=== PATIENT | male | born 1940 | race Caucasian/White ===

== ENCOUNTER → 2019-07-20 | Outpatient (CLI) | payer MEDICARE, OTHER ==
--- NOTE | 2019-07-20 15:38 | US ---
EXAMINATION TYPE: US kidneys/renal and bladder DATE OF EXAM: 07/20/2019 COMPARISON: US right 2008 CLINICAL HISTORY: Z87.442 Hx urinary calculi, R30.0 Dysuria. left flank pain radiating to left pelvis EXAM MEASUREMENTS: Right Kidney: 12.0 x 6.8 x 5.7 cm Left Kidney: 13.4 x 7.1 x 6.2 cm Post Void Residual Volume: 16.4 mL . Right Kidney: inferior pole shadowing calcifications with larger area = 1.5 x 1.8 x 0.4cm Left Kidney: multiple calcifications noted with initial views of mid lower sinus shadowing stone drop ping posteriorly on real time observation; this stone is largest = 2.0 x 1.01 x 0.5cm; very mild hydr onephrosis Bladder: wnl Bilateral Jets seen: yes Normal Post Void Residual: yes Suspect bilateral nonobstructing renal calculi. IMPRESSION: Bilateral nonobstructing renal calculi suspected. Consider plain film and/or CT confirmat ion. No hydronephrosis is noted bilaterally.
== END | disposition home or self-care (01) ==
LOC: RADUSWWP 14:38
PROVIDERS: ATTEND Family Medicine
DX: R30.0 Dysuria (principal); Z87.442 Personal history of urinary calculi
CPT/HCPCS: 76770

== ENCOUNTER → 2019-09-22 | Outpatient (CLI) | payer MEDICARE, OTHER ==
[2019-09-22 16:17] LABS: HCT 43.3 % (39.0-53.0); HGB 14.2 gm/dL (13.0-17.5); MCH 33.2 pg (25.0-35.0); MCHC 32.7 g/dL (31.0-37.0); MCV 101.3 fL (80.0-100.0); Mean Platelet Volume 7.9; Platelet Count 175 k/uL (150-450); RBC 4.28 m/uL (4.30-5.90); RDW 12.9 % (11.5-15.5); WBC 7.9 k/uL (3.8-10.6)
== END | disposition home or self-care (01) ==
LOC: LABPAT 15:27
PROVIDERS: ATTEND Internal Medicine Cardiovascular Disease
DX: Z01.812 Encounter for preprocedural laboratory examination (principal); I25.10 Atherosclerotic heart disease of native coronary artery without angina pectoris
CPT/HCPCS: 36415; 80051; 82565; 84520; 85027

== ENCOUNTER 2019-09-30 07:21 | Inpatient (IN) | payer MEDICARE, OTHER ==
[~2019-09-30 07:21] MED LIST: ALPRAZolam 0.25 MG TAB PO PRN; ALPRAZolam 0.5 MG TAB PO PRN; ASPIRIN 325 MG TAB PO STA; ATORVASTATIN 80 MG TAB PO STA; NITROGLYCERIN SL TABS 0.4 MG TAB SUBLINGUAL PRN; SODIUM CHLORIDE 0.9% 1,000 ML in EMPTY BAG 1 BAG IV ONE
[2019-09-30] MEDS ORDERED: HEPARIN SODIUM 1,000 UN/ML (10ML VL) ONE (08:42)
[2019-09-30] MEDS ORDERED: fentaNYL (PF) 50 MCG/ML 2 ML AMP ONE (08:42)
[2019-09-30] MEDS ORDERED: LIDOCAINE 1% INJ 10MG/ML (20 ML MDV) SQ ONE (08:53)
[2019-09-30] MEDS: MIDAZOLAM 2 MG/2 ML VIAL IV ONE ×2 (08:54→09:43)
[2019-09-30] MEDS ORDERED: fentaNYL (PF) 50 MCG/ML 2 ML AMP IV ONE (08:54)
[2019-09-30] MEDS: VERAPAMIL SYRINGE (5 MG/10 ML) INTRAARTER ONE ×2 (08:56→10:14)
[2019-09-30] MEDS ORDERED: HEPARIN SODIUM 1,000 UN/ML (10ML VL) IV ONE (08:58)
--- NOTE | 2019-09-30 09:22 | P.CARDCATH ---
Date of Procedure: 09/30/19 Preoperative Diagnosis: Ischemic heart disease, positive stress test and hyperlipidemia Postoperative Diagnosis: Critical lesion involving the OM branches and moderate disease in the LAD. Critical lesion in the acute marginal branch of the right Description of Procedure: HISTORY: This is a 79-year-old gentleman with history of ischemic heart disease with a previous stent placement of the distal RCA was recently evaluated with stress test and was found to have ischemia in the inferolateral segments. Patient is advised to have a cardiac catheterization for definitive diagnosis CONSENT:I have discussed the risks, benefits and alternative therapies for the above-mentioned procedure and for both sedation/analgesia as well as necessary blood product administration, if indicated, as they pertain to this patient. The patient has indicated understanding and acceptance of the risks and procedures discussed. PROCEDURE: Patient was brought to the lab in a fasting state. Patient was given some IV sedation. The right wrist is infiltrated with lidocaine and right radial artery was entered using Seldinger technique. A 6-Micronesian catheter was left in place and selective coronary arteriography was performed. Patient tolerated the procedure well. Patient went on to have stent placement of the OM branch.. No immediate complications were noted. Conscious Sedation: Versed 1mg Fentanyl 25 g Duration 19minutes HEMODYNAMICS: The aortic pressure is about 113/66. Left ventricle end-diastolic pressures of 12-16. There was no gradient across the aortic valve SELECTIVE CORONARY ARTERIOGRAPHY: LEFT MAIN: Normal length and free of any occlusive disease THE LEFT ANTERIOR DESCENDING CORONARY ARTERY:. This is a good caliber vessel with a diffuse disease in the mid and distal portion with the areas of about 50-60% stenosis. The lesions a long. There doesn't seem to be critical stenosis THE LEFT CIRCUMFLEX AND IS CORONARY ARTERY:, Moderate caliber vessel giving rise to 2 OM branches of moderate in caliber. The first OM branch has about 95% stenosis in the proximal portion. The second OM branch also has about 80% stenosis involving the ostium THE RIGHT CORONARY ARTERY:. This is a dominant vessel and has mild diffuse plaque in the distal portion but patent at the site of previous angioplasty and stent placement. There is a small acute marginal branch which has about 80% stenosis LEFT VENTRICULOGRAPHY: Not performed FINAL IMPRESSION:. Significant lesions involving the 2 OM branch of the circumflex with moderate disease involving the mid and distal LAD PLAN: Stent placement of the OM branches. To be evaluated by Dr. ELSY Mcconnell PROGNOSIS: Fair
[2019-09-30] MEDS ORDERED: BIVALIRUDIN 250 MG in SODIUM CHLORIDE 0.9% 50 ML IV ONE (09:46)
[2019-09-30] MEDS ORDERED: BIVALIRUDIN BOLUS 250 MG/50 ML IV ONE (09:46)
[2019-09-30] MEDS ORDERED: IOPAMIDOL-370 125ML BTL INJ ONE (10:01)
[2019-09-30] MEDS ORDERED: PRASUGREL 10 MG TAB ONE ×2 (10:03)
[2019-09-30] MEDS ORDERED: PRASUGREL 10 MG TAB PO ONE (10:05)
[2019-09-30] MEDS ORDERED: NITROGLYCERIN 1000MCG/10ML SYRINGE INTRACORON ONE (10:08)
[2019-09-30] MEDS ORDERED: IOPAMIDOL-370 100ML BTL INJ ONE (10:18)
[2019-09-30] MEDS ORDERED: MAG HYDROX/AL HYDROX/SIMETH 30 ML CUP PO PRN (10:31)
[2019-09-30] MEDS ORDERED: ATROPINE SULFATE 0.1 MG/ML 10ML SYRINGE IV PRN (10:31)
[2019-09-30] MEDS ORDERED: RX INFO: IV CONTRAST WAS GIVEN 1 EACH MISC MISCELLANE PRN (10:31)
--- NOTE | 2019-09-30 10:42 | PTCA ---
PERCUTANEOUSTRANS CORORONARY ANGIOGRAPHY DATE OF SERVICE: 09/30/2019 PROCEDURE: PTCA and stenting of first and second obtuse marginal branches of circumflex with two separate drug-eluting stents. PERFORMED BY: Dr. Opal Mcconnell. Moderate conscious sedation time was 32 minutes. CLINICAL INFORMATION: Mr. Nick Ndiaye is a 79-year-old gentleman with a history of hypertension, hyperlipidemia, CAD who underwent stenting of PDA branch of RCA in [address] Marvin Mcconnell. He has been having symptoms of angina and a stress test revealed a lateral wall ischemia. Cardiac cath by Dr. Diop revealed a 95% lesion involving the first obtuse marginal and a 70% lesion in the second obtuse marginal, both of which were eccentric lesions best seen in the caudal projections. I recommended PCI and that was performed in the same setting. PROCEDURE NOTE: The existing 6-Hebrew introducer in the right radial artery was used to perform procedure. A standard left [place] guide catheter was used to cannulate the left coronary artery. A run-through wire was used to cross the lesion in the second obtuse marginal and a Whisper wire was used to cross the lesion in the first obtuse marginal. The first obtuse marginal was pre-dilated with a 2.25 caliber 15 mm Trek balloon and then I used a 15 mm long 2.5 caliber Xience stent and deployed this at 11 atmospheres. Patient did not have chest pain or EKG changes, but he had excellent angiographic result. The second obtuse marginal was directly stented. I used a 2.75 caliber 12 mm Xience stent and deployed this at 12 atmospheres. Patient had mild discomfort in the throat area, but no EKG changes. Excellent angiographic result was achieved. He received 60 mg of Effient and also received Angiomax bolus and infusion as per protocol. The sheath was taken out and a TR band applied as per protocol. Saturation in the fingers of the right hand was 94%. Excellent angiographic result was achieved of both first and second obtuse marginal with a drug-eluting stent. Results were discussed with the patient and . MMROBINL / IJN: [id number] /
[2019-09-30 14:46] VITALS: BMI 25.7
[2019-09-30] MEDS: SODIUM CHLORIDE 0.9% 1,000 ML IV SCH (18:31)
[2019-09-30] MEDS: LOSARTAN 25 MG TAB PO SCH (20:32)
[2019-09-30] MEDS: ATORVASTATIN 80 MG TAB PO SCH (20:32)
[2019-09-30] MEDS: TAMSULOSIN 0.4 MG CAP.ER.24H PO SCH (20:32)
[2019-09-30] MEDS: METOPROLOL TARTRATE 12.5 MG TAB PO SCH (20:32)
[2019-10-01] MEDS: THYROID, PORK 30 MG TAB PO SCH (06:16)
[2019-10-01 06:41] LABS: Basophils % (A) 0 %; Eosinophils # (A) 0.4 k/uL (0-0.7); Eosinophils % (A) 8 %; HCT 38.2 % (39.0-53.0); HGB 13.3 gm/dL (13.0-17.5); Lymphocytes # (A) 1.1 k/uL (1.0-4.8); Lymphocytes % (A) 20 %; MCH 34.9 pg (25.0-35.0); MCHC 34.8 g/dL (31.0-37.0); MCV 100.3 fL (80.0-100.0); Mean Platelet Volume 7.4; Monocytes # (A) 0.5 k/uL (0-1.0); Monocytes % (A) 9 %; Neutrophils # (A) 3.4 k/uL (1.3-7.7); Neutrophils % (A) 61 %; Platelet Count 134 k/uL (150-450); RBC 3.81 m/uL (4.30-5.90); RDW 12.9 % (11.5-15.5); WBC 5.5 k/uL (3.8-10.6)
[2019-10-01 07:00] LABS: African American GFR (CKD) >90 (>60 ml/min/1.73 sqM); Anion Gap 8 mmol/L; Blood Urea Nitrogen 12 mg/dL (9-20); Calcium 8.7 mg/dL (8.4-10.2); Carbon Dioxide 23 mmol/L (22-30); Chloride 112 mmol/L (98-107); Glucose 137 mg/dL (74-99); Non-African American GFR(CKD) 83 (>60 ml/min/1.73 sqM); Potassium 4.3 mmol/L (3.5-5.1); Sodium 143 mmol/L (137-145)
[2019-10-01] MEDS: SODIUM CHLORIDE 0.9% 1,000 ML IV SCH (10:11)
[2019-10-01] MEDS: ASPIRIN 81 MG PO SCH (10:14)
[2019-10-01] MEDS: PRASUGREL 10 MG TAB PO SCH (10:14)
[2019-10-01] MEDS: TIMOLOL 0.5% OPHTH DROPS 5 ML BTL BOTH EYES SCH (10:14)
[2019-10-01] MEDS: METOPROLOL TARTRATE 12.5 MG TAB PO SCH (10:14)
[2019-10-01] MEDS: CALCIUM CARB-MAG CARB-FOLIC 1 EACH TAB PO SCH (10:14)
--- NOTE | 2019-10-01 12:05 | P.GSCN ---
History of Present Illness Consult date: 10/01/19 History of present illness: Patient is a pleasant 79-year-old gentleman in the hospital for cardiac catheterization and stent placement. He has been anticoagulated. He had some gross hematuria as well as left lower quadrant pain. I was asked to see the patient. He is well known to me for kidney stones. He has not been seen in some time. He states that for quite a while is having this left lower quadrant pain. He has had intermittent hematuria. He had an ultrasound of the abdomen back in July identifying what appears to be bilateral renal stones. He has not passed the stones for some time. He wonders whether he passed a stone recently. The hematuria is cleared. He has a minimal ache this point in time. His creatinine is normal. His white count is normal. There is no urinalysis on the chart. Review of Systems All systems: negative - Constitutional Denies fever, Denies weight loss - EENT Eyes: denies blurred vision Ears, nose, mouth and throat: Denies dysphagia - Cardiovascular Denies chest pain, Denies shortness of breath - Respiratory Denies cough, Denies 7 - Gastrointestinal Reports as per HPI - Genitourinary Denies dysuria, Denies hematuria - Integumentary Denies rash, Denies unusual bruising - Neurological Denies headaches, Denies syncope - Hematologic/Lymphatic Denies easy bleeding, Denies easy bruising Past Medical History Past Medical History: Coronary Artery Disease (CAD), Cancer, Eye Disorder, Thyroid Disorder Additional Past Medical History / Comment(s): bilat glaucoma, hx lyme disease, kidney stones, 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 REPAIR FX JAW. KIDNEY STONE -LITHOTRIPSY. URETERAL STENTS WITH LATER REMOVAL Past Anesthesia/Blood Transfusion Reactions: No Reported Reaction Date of Last Stent Placement:: 2010? Past Psychological History: No Psychological Hx Reported Smoking Status: Never smoker Past Alcohol Use History: None Reported, Occasional Past Drug Use History: Marijuana Additional Drug Use History / Comment(s): USES CBD OIL-INSTRUCTED TO REFRAIN FROM USE FOR AT LEAST 24 HOURS PRIOR TO PROCEDURE - Past Family History Brother(s) Family Medical History: Deep Vein Thrombosis (DVT) Mother Family Medical History: CVA/TIA Medications and Allergies Home Medications Medication Instructions Recorded Confirmed Type Alfuzosin HCl [Uroxatral ER] 10 mg PO HS 09/28/19 09/30/19 History Calcium Carb/Magnesium Ox,Carb 2 tab PO DAILY 09/28/19 09/30/19 History [James-Mag 500-250 MG Chewable] Cbd Oil 500 mg SUBLINGUAL BID 09/28/19 History Chlor Oxygen 1 tab PO BID 09/28/19 History Melatonin 5 mg PO HS 09/28/19 09/30/19 History Naproxen Sodium [Aleve] 220 mg PO DAILY PRN 09/28/19 09/30/19 History Prasterone (Dhea) [Dhea] 50 mg PO DAILY 09/28/19 09/30/19 History Somnapur 1 tab PO HS 09/28/19 History Thyroid,Pork [[place] Thyroid] 60 mg PO DAILY 09/28/19 09/30/19 History Timolol 0.5% Ophth Soln [Timoptic 1 drop BOTH EYES DAILY 09/28/19 09/30/19 History 0.5% Ophth Soln] Zynergy 1 tab PO DAILY 09/28/19 History Allergies Allergy/AdvReac Type Severity Reaction Status Date / Time No Known Allergies Allergy Verified 09/30/19 07:37 Surgical - Exam Vital Signs Temp Pulse Resp BP Pulse Ox 97.8 F 65 18 144/75 99 09/30/19 07:48 09/30/19 07:48 09/30/19 07:48 09/30/19 07:48 09/30/19 07:48 - General well developed, well nourished, no distress - Eyes PERRL - ENT no hearing loss - Neck trachea midline - Respiratory normal expansion, normal respiratory effort - Cardiovascular Rhythm: regular - Abdomen Abdomen: soft, non tender - Genitourinary normal penis with no external lesions, testicles present - Integumentary no rash, no growths - Neurologic normal coordination, normal sensation - Musculoskeletal normal gait, normal posture - Psychiatric oriented to time, oriented to person, oriented to place, speech is normal, memory intact Results - Labs 10/01/19 06:19 10/01/19 06:19 Abnormal Lab Results - Last 24 Hours (Table) 10/01/19 10/01/19 Range/Units 06:19 06:19 RBC 3.81 L (4.30-5.90) m/uL Hct 38.2 L (39.0-53.0) % MCV 100.3 H (80.0-100.0) fL Plt Count 134 L (150-450) k/uL Chloride 112 H (98-107) mmol/L Glucose 137 H (74-99) mg/dL Diabetes panel 10/01/19 Range/Units 06:19 Sodium 143 (137-145) mmol/L Potassium 4.3 (3.5-5.1) mmol/L Chloride 112 H (98-107) mmol/L Carbon Dioxide 23 (22-30) mmol/L BUN 12 (9-20) mg/dL Creatinine 0.89 (0.66-1.25) mg/dL Glucose 137 H (74-99) mg/dL Calcium 8.7 (8.4-10.2) mg/dL Calcium panel 10/01/19 Range/Units 06:19 Calcium 8.7 (8.4-10.2) mg/dL Pituitary panel 10/01/19 Range/Units 06:19 Sodium 143 (137-145) mmol/L Potassium 4.3 (3.5-5.1) mmol/L Chloride 112 H (98-107) mmol/L Carbon Dioxide 23 (22-30) mmol/L BUN 12 (9-20) mg/dL Creatinine 0.89 (0.66-1.25) mg/dL Glucose 137 H (74-99) mg/dL Calcium 8.7 (8.4-10.2) mg/dL Adrenal panel 10/01/19 Range/Units 06:19 Sodium 143 (137-145) mmol/L Potassium 4.3 (3.5-5.1) mmol/L Chloride 112 H (98-107) mmol/L Carbon Dioxide 23 (22-30) mmol/L BUN 12 (9-20) mg/dL Creatinine 0.89 (0.66-1.25) mg/dL Glucose 137 H (74-99) mg/dL Calcium 8.7 (8.4-10.2) mg/dL Assessment and Plan Assessment: Impression: Gross hematuria and left-sided pain consistent with kidney stone. Recent coronary artery angiogram with stent placement Recommendations: I will obtain a KUB to see if I can get an idea of what kind of stones he hasn't this point in time. Since he is asymptomatic there is no emergency to treatment. We will see what the KUB shows some further recommendations can be given.
--- NOTE | 2019-10-01 13:11 | XR ---
KUB HISTORY: Kidney stones, hematuria Frontal KUB submitted on 2 images Correlation ultrasound 07/20/2019 Multiple calcifications are present within the pelvis felt likely to represent phleboliths. Bone mine ralization is normal. Surgical clips are present in the right upper quadrant. There are bilateral júnior al calcifications, at the lower pole region of the right kidney there is a calcification measuring ap proximately 12 to 13 mm in size. There may be smaller associated calcifications at this level. On the left, there are calcifications at the lower pole level one of which measures approximately 12 mm and the second approximately 20 mm possibly in contiguity. Additional lower pole calcification measures approximately 9 mm, possible associated smaller calcifications. IMPRESSION: Bilateral nephrolithiasis.
--- NOTE | 2019-10-01 17:34 | P.PN ---
Subjective Progress Note Date: 10/01/19 This is a 79-year-old gentleman with history of ischemic heart disease was brought in for cardiac catheterization because of positive stress test. Patient had critical lesion in the 2 OM branches and had stent placement. Patient however developed hematuria and was seen by urology today. It is felt that could be related to kidney stones. His wound have a KUB. Patient also developed some bradycardia with pauses up to 2.8-3 seconds. 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 Patient is asymptomatic. His beta patsy was held. Lungs appeared to be clear. Heart is regular. Patient is not having chest pain. He patient remains stable he'll be discharged home tomorrow Objective - Vital Signs Vital signs: Vital Signs Temp 97.9 F 10/01/19 08:00 Pulse 66 10/01/19 16:00 Resp 20 10/01/19 16:00 BP 113/74 10/01/19 16:00 Pulse Ox 98 10/01/19 16:00 Intake & Output 09/30/19 10/01/19 10/01/19 18:59 06:59 18:59 Intake Total 930 825 250 Output Total 750 Balance 930 75 250 Weight 83.915 kg 85.1 kg Intake: IV 480 Intake, IV Titration 450 825 Amount Sodium Chloride 0.9% 1, 450 825 000 ml @ 75 mls/hr IV . [id number] [facility] Rx#:[id number] Oral 250 Output: Urine 750 Other: Voiding Method Toilet # Voids 2 1 2 - Exam GENERAL EXAM: Patient is alert and oriented and doesn't appear to be in any acute distress HEENT: Normocephalic. Normal reaction of pupils, equal size, normal range of extraocular motion. No erythema or exudates in the throat. NECK: No masses, no nuchal rigidity. CHEST: No chest wall deformity. LUNGS: Equal air entry with no crackles or wheeze. HEART: S1 and S2 normal with no audible mumurs or gallops. Regular rhythm, femorals equal on both sides.. ABDOMEN: No hepatosplenomegaly, normal bowel sounds, no guarding or rigidity. SKIN: No rashes CENTRAL NERVOUS SYSTEM: No focal deficits. EXTREMITIES: No cyanosis, clubbing or edema. - Labs CBC & Chem 7: 10/01/19 06:19 10/01/19 06:19 Labs: Abnormal Lab Results - Last 24 Hours (Table) 10/01/19 10/01/19 Range/Units 06:19 06:19 RBC 3.81 L (4.30-5.90) m/uL Hct 38.2 L (39.0-53.0) % MCV 100.3 H (80.0-100.0) fL Plt Count 134 L (150-450) k/uL Chloride 112 H (98-107) mmol/L Glucose 137 H (74-99) mg/dL Assessment and Plan (1) Coronary artery disease Current Visit: Yes Status: Acute Code(s): I25.10 - ATHSCL HEART DISEASE OF [place] CORONARY ARTERY W/O ANG PCTRS SNOMED Code(s): 06652435 (2) Hematuria Current Visit: Yes Status: Acute Code(s): R31.9 - HEMATURIA, UNSPECIFIED SNOMED Code(s): 11819004 (3) Hypercholesteremia Current Visit: Yes Status: Acute Code(s): E78.00 - PURE HYPERCHOLESTEROLEMIA, UNSPECIFIED SNOMED Code(s): 33788009 (4) S/P coronary artery stent placement Current Visit: Yes Status: Acute Code(s): Z95.5 - PRESENCE OF CORONARY ANGIOPLASTY IMPLANT AND GRAFT SNOMED Code(s): 766644763 Plan: Continue current medical therapy. Increase activity. Hold beta patsy. If stable patient will be discharged home in the morning.
[2019-10-01] MEDS: LOSARTAN 25 MG TAB PO SCH (22:09)
[2019-10-01] MEDS: TAMSULOSIN 0.4 MG CAP.ER.24H PO SCH (22:09)
[2019-10-01] MEDS: ATORVASTATIN 80 MG TAB PO SCH (22:09)
[2019-10-02] MEDS: THYROID, PORK 30 MG TAB PO SCH (06:29)
--- NOTE | 2019-10-02 07:11 | P.PN ---
Subjective Progress Note Date: 10/02/19 The patient had a KUB yesterday. It shows bilateral renal stones. This has been discussed with the patient. I will see him in follow-up in the office for further treatment discussion and plans. Objective - Vital Signs Vital signs: Vital Signs Temp 98.1 F 10/02/19 04:00 Pulse 65 10/02/19 04:00 Resp 16 10/02/19 04:00 BP 101/59 10/02/19 04:00 Pulse Ox 97 10/02/19 04:00 Intake & Output 10/01/19 10/02/19 10/02/19 18:59 06:59 18:59 Intake Total 856 Output Total 1400 Balance 856 -1400 Weight 85.3 kg Intake: Oral 856 Output: Urine 1400 Other: Voiding Method Toilet Toilet # Voids 2 - Labs CBC & Chem 7: 10/01/19 06:19 10/01/19 06:19
[2019-10-02] MEDS: ASPIRIN 81 MG PO SCH (08:34)
[2019-10-02] MEDS: PRASUGREL 10 MG TAB PO SCH (08:34)
[2019-10-02] MEDS: CALCIUM CARB-MAG CARB-FOLIC 1 EACH TAB PO SCH ×2 (08:34→08:38)
[2019-10-02] MEDS: TIMOLOL 0.5% OPHTH DROPS 5 ML BTL BOTH EYES SCH (08:34)
[2019-10-02 08:42] VITALS: BP 92/51; PULSE 75; RESP 18; TEMP 96.5
--- NOTE | 2019-10-02 11:42 | P.DS ---
Providers Date of admission: 10/01/19 15:38 Attending physician: Uriel Diop Consults: 09/30/19 10:32 Consult Physician Routine Consulting Provider: [facility] Consult Reason/Comments: Post Interventional patient Do you want consulting provider notified?: Already Contacted 09/30/19 16:55 Consult Physician Routine Consulting Provider: Brayden Griggs Reason/Comments: hematuria, known kidney stones Do you want consulting provider notified?: Yes Primary care physician: Sissy Covarrubias - Discharge Diagnosis(es) (1) Coronary artery disease Current Visit: Yes Status: Acute (2) Hematuria Current Visit: Yes Status: Acute (3) Hypercholesteremia Current Visit: Yes Status: Acute (4) S/P coronary artery stent placement Current Visit: Yes Status: Acute Hospital Course: Patient is clinically stable. Hematuria has cleared and patient is cleared by Dr. Lu to be discharged home. Hasn't had any chest pain, shortness of breath or dizziness. 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 Since discontinuing beta patsy. Patient has been stable. Patient is also taken off the Cozaar because of low blood pressure. Lungs are clear. Heart is regular. No JVD. No peripheral edema. Patient is being discharged home. Puncture site has been stable. Follow-up in the office in one week Plan - Discharge Summary Discharge Rx Participant: No New Discharge Prescriptions: New Aspirin 81 mg PO DAILY chew Prasugrel [Effient] 10 mg PO DAILY #30 tab Tamsulosin [Flomax] 0.4 mg PO HS #30 cap.er.24h Atorvastatin [Lipitor] 80 mg PO HS #30 tab Nitroglycerin Sl Tabs [Nitrostat] 0.4 mg SUBLINGUAL Q5M PRN #20 tab PRN Reason: Chest Pain Continue Naproxen Sodium [Aleve] 220 mg PO DAILY PRN PRN Reason: Pain Calcium Carb/Magnesium Ox,Carb [James-Mag 500-250 MG Chewable] 2 tab PO DAILY Timolol 0.5% Ophth Soln [Timoptic 0.5% Ophth Soln] 1 drop BOTH EYES DAILY Thyroid,Pork [[place] Thyroid] 60 mg PO DAILY Alfuzosin HCl [Uroxatral ER] 10 mg PO HS Zynergy 1 tab PO DAILY Somnapur 1 tab PO HS Prasterone (Dhea) [Dhea] 50 mg PO DAILY Melatonin 5 mg PO HS Chlor Oxygen 1 tab PO BID Cbd Oil 500 mg SUBLINGUAL BID Discharge Medication List Alfuzosin HCl [Uroxatral ER] 10 mg PO HS 09/28/19 [History] Calcium Carb/Magnesium Ox,Carb [James-Mag 500-250 MG Chewable] 2 tab PO DAILY 09/28/19 [History] Cbd Oil 500 mg SUBLINGUAL BID 09/28/19 [History] Chlor Oxygen 1 tab PO BID 09/28/19 [History] Melatonin 5 mg PO HS 09/28/19 [History] Naproxen Sodium [Aleve] 220 mg PO DAILY PRN 09/28/19 [History] Prasterone (Dhea) [Dhea] 50 mg PO DAILY 09/28/19 [History] Somnapur 1 tab PO HS 09/28/19 [History] Thyroid,Pork [[place] Thyroid] 60 mg PO DAILY 09/28/19 [History] Timolol 0.5% Ophth Soln [Timoptic 0.5% Ophth Soln] 1 drop BOTH EYES DAILY 09/28/19 [History] Zynergy 1 tab PO DAILY 09/28/19 [History] Aspirin 81 mg PO DAILY chew 10/02/19 [Rx] Atorvastatin [Lipitor] 80 mg PO HS #30 tab 10/02/19 [Rx] Nitroglycerin Sl Tabs [Nitrostat] 0.4 mg SUBLINGUAL Q5M PRN #20 tab 10/02/19 [Rx] Prasugrel [Effient] 10 mg PO DAILY #30 tab 10/02/19 [Rx] Tamsulosin [Flomax] 0.4 mg PO HS #30 cap.er.24h 10/02/19 [Rx] Follow up Appointment(s)/Referral(s): Sissy Covarrubias MD [Primary Care Provider] - 10/12/19 9:30 am Uriel Diop MD [STAFF PHYSICIAN] - 10/13/19 2:30 pm Brayden Griggs MD [STAFF PHYSICIAN] - 2 Weeks (Urologist for kidney stones - office will call you with a follow up appointment. ) Patient Instructions/Handouts: Heart Healthy Diet (DC), Safe Use of Antiplate let Medication (DC), After Radial Heart Catheterization (GEN) Activity/Diet/Wound Care/Special Instructions: CARDIAC CATH 1. Support your puncture site by applying firm, steady pressure whenever you cough, laugh, sneeze or bear down to have a bowel movement (2-day restriction for groin site puncture). 2. Watch for any excessive bruising, active bleeding, a firm knot forming under your skin, extreme tenderness and signs of infection (redness, swelling, fever). 3. Shower daily, do not soak puncture in a tub bath, jacuzzi, pool, clarke etc. for 1 week. This is to prevent risk of infection. 4. Drink plenty of fluids the day of and day after your procedure to flush contrast dye out of your kidneys. 5. Take all medications as directed. Never stop any new medication without your physicians OK. 6. No driving for 2 days after procedure. 7. 10- pound weight lifting restriction for 1 week. 8. Low sodium/low fat diet. 9. Activity limited until follow up appointment with your level designer. In case of any problems, please call [facility], Myron Salgado @ [phone]. Discharge Disposition: HOME SELF-CARE
== END 2019-10-02 13:13 | disposition home or self-care (01) | DRG 247 ==
LOC: CATHCVL 07:21 → 3SCARD 11:41 → CATHCVL 10-01 15:38 → 3SCARD 10-01 15:38
PROVIDERS: ADMIT Internal Medicine Cardiovascular Disease; ATTEND Internal Medicine Cardiovascular Disease
PROC: 027035Z Dilation of Coronary Artery, One Artery with Two Drug-eluting Intraluminal Devices, Percutaneous Approach (ICD-10-PCS; principal; 2019-09-30 08:30)
PROC: B2111ZZ Fluoroscopy of Multiple Coronary Arteries using Low Osmolar Contrast (ICD-10-PCS; 2019-09-30 08:30)
DX: I25.10 Atherosclerotic heart disease of native coronary artery without angina pectoris (principal); E78.00 Pure hypercholesterolemia, unspecified; E78.5 Hyperlipidemia, unspecified; I10 Essential (primary) hypertension; I44.1 Atrioventricular block, second degree; N20.0 Calculus of kidney; R31.0 Gross hematuria; Z87.442 Personal history of urinary calculi
CPT/HCPCS: 74018; 80048; 85025; 93458; C1874

== ENCOUNTER → 2019-11-16 | Outpatient (CLI) | payer MEDICARE, OTHER ==
--- NOTE | 2019-11-16 12:38 | XR ---
EXAMINATION TYPE: XR KUB DATE OF EXAM: 11/16/2019 COMPARISON: 10/01/2019 HISTORY: Bilateral flank pain TECHNIQUE: One view abdominal series FINDINGS: The osseous structures are intact. The bowel gas pattern is nonspecific. Right kidney: There is a stable 1.2 cm lower pole calyceal calcification. Left kidney: There is a 1 cm renal pelvic calcification is stable. There is a 9 mm mid to lower pole calyceal calcification stable with tiny additional fragmented 1 to 2 mm satellite calcifications. The re is an infundibular calcification lower pole measuring 1 cm. There is additional lower pole calycea l calcification measuring 7 mm. Findings are stable. Pelvis: Calcifications in the pelvis are noted. Does appear to be a new elliptical calcification the right hemipelvis measuring 8 mm. IMPRESSION: 1. Stable bilateral renal calculi as measured above. 2. Within the right hemipelvis there is a new 8 mm calcification not seen on the prior exam.
== END | disposition home or self-care (01) ==
LOC: LABWHC1 10:42
PROVIDERS: ATTEND Urology
DX: N20.0 Calculus of kidney (principal)
CPT/HCPCS: 74018

== ENCOUNTER → 2019-11-20 | Outpatient (CLI) | payer MEDICARE, OTHER ==
--- NOTE | 2019-11-20 16:01 | XR ---
EXAMINATION TYPE: XR chest 2V DATE OF EXAM: 11/20/2019 COMPARISON: 11/04/2014 TECHNIQUE: PA and lateral views submitted. HISTORY: Shortness of breath FINDINGS: The lungs are clear and there is no pneumothorax, pleural effusion, or focal pneumonia. Limited ins piration. Subsegmental changes at both lung bases. Degenerative change of the spine. IMPRESSION: 1. Basilar atelectasis favored over pneumonia correlate clinically for confirmation.
[2019-11-20 16:26] LABS: Basophils # (A) 0.2 k/uL (0-0.2); Basophils % (A) 2 %; Eosinophils # (A) 0.3 k/uL (0-0.7); Eosinophils % (A) 3 %; HCT 42.8 % (39.0-53.0); HGB 14.4 gm/dL (13.0-17.5); Lymphocytes # (A) 1.4 k/uL (1.0-4.8); Lymphocytes % (A) 18 %; MCH 34.1 pg (25.0-35.0); MCHC 33.6 g/dL (31.0-37.0); MCV 101.6 fL (80.0-100.0); Mean Platelet Volume 11.6; Monocytes # (A) 0.7 k/uL (0-1.0); Monocytes % (A) 9 %; Neutrophils # (A) 4.9 k/uL (1.3-7.7); Neutrophils % (A) 66 %; Platelet Count 161 k/uL (150-450); RBC 4.21 m/uL (4.30-5.90); RDW 12.7 % (11.5-15.5); WBC 7.5 k/uL (3.8-10.6)
[2019-11-20 23:23] LABS: Albumin 4.5 g/dL (3.80-4.90); Albumin/Globulin Ratio 2.25 (1.60-3.17); Anion Gap 7.8 mmol/L (4.00-12.00); BUN/Creat Ratio 17.69 Ratio (12.00-20.00); Calcium 9.5 mg/dL (8.7-10.3); Carbon Dioxide 25.2 mmol/L (21.6-31.8); Non-African American GFR(CKD) 52.6 (60.0-200.0); Potassium 4.8 mmol/L (3.5-5.5); Total Bilirubin 1.1 mg/dL (0.3-1.2); Total Protein 6.5 g/dL (6.2-8.2)
== END | disposition home or self-care (01) ==
LOC: LABWHC1 15:08
PROVIDERS: ATTEND Internal Medicine Cardiovascular Disease
DX: I25.10 Atherosclerotic heart disease of native coronary artery without angina pectoris (principal); R06.02 Shortness of breath
CPT/HCPCS: 36415; 71046; 80053; 83880; 85025

== ENCOUNTER 2020-01-01 22:25 | Inpatient (IN) | payer MEDICARE, OTHER ==
--- NOTE | 2020-01-01 22:49 | ED ---
Chest Pain HPI - General Chief Complaint: Chest Pain Stated Complaint: Chest Pain Time Seen by Provider: 01/01/20 22:35 Source: patient, RN notes reviewed, old records reviewed Mode of arrival: ambulatory Limitations: no limitations - History of Present Illness Initial Comments: This is a 79-year-old male DF for evaluation patient has a for evaluation of some nonspecific when he feels maybe cardiac type symptoms. Patient has had history of cardiac disease 2 times is likely as needed stents most recently last September. Patient without chest pain shortness of breath currently no recent fever cough or congestion but does admit to recent fatigue. No recent change in medications no travel history or sick contacts again symptoms involved jaw pain and tingling, back of the neck pain. He has not had symptoms agree with the past never came the ER in his life for evaluation of any chest pain or some similar type event MD Complaint: chest pain, other (Patient now with active chest pain but does have jaw pain) -: hour(s) Onset: during rest Pain Radiation: neck, jaw/teeth Severity: moderate Severity scale (1-10): 4 Quality: tightness, heaviness Consistency: constant Improves With: nothing Worsens With: nothing Anginal Symptoms: sense of impending doom Other Symptoms: palpitations Treatments Prior to Arrival: none - Related Data Home Medications Medication Instructions Recorded Confirmed Alfuzosin HCl [Uroxatral ER] 10 mg PO HS 09/28/19 09/30/19 Calcium Carb/Magnesium Ox,Carb 2 tab PO DAILY 09/28/19 09/30/19 [James-Mag 500-250 MG Chewable] Cbd Oil 500 mg SUBLINGUAL BID 09/28/19 Chlor Oxygen 1 tab PO BID 09/28/19 Melatonin 5 mg PO HS 09/28/19 09/30/19 Naproxen Sodium [Aleve] 220 mg PO DAILY PRN 09/28/19 09/30/19 Prasterone (Dhea) [Dhea] 50 mg PO DAILY 09/28/19 09/30/19 Somnapur 1 tab PO HS 09/28/19 Thyroid,Pork [[place] Thyroid] 60 mg PO DAILY 09/28/19 09/30/19 Timolol 0.5% Ophth Soln [Timoptic 1 drop BOTH EYES DAILY 09/28/19 09/30/19 0.5% Ophth Soln] Zynergy 1 tab PO DAILY 09/28/19 Previous Rx's Medication Instructions Recorded Aspirin 81 mg PO DAILY chew 10/02/19 Atorvastatin [Lipitor] 80 mg PO HS #30 tab 10/02/19 Nitroglycerin Sl Tabs [Nitrostat] 0.4 mg SUBLINGUAL Q5M PRN #20 tab 10/02/19 Prasugrel [Effient] 10 mg PO DAILY #30 tab 10/02/19 Tamsulosin [Flomax] 0.4 mg PO HS #30 cap.er.24h 10/02/19 Allergies Allergy/AdvReac Type Severity Reaction Status Date / Time No Known Allergies Allergy Verified 01/01/20 22:32 Review of Systems ROS Statement: Those systems with pertinent positive or pertinent negative responses have been documented in the HPI. ROS Other: All systems not noted in ROS Statement are negative. 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 REPAIR FX JAW. KIDNEY STONE -LITHOTRIPSY. URETERAL STENTS WITH LATER REMOVAL Past Anesthesia/Blood Transfusion Reactions: No Reported Reaction Date of Last Stent Placement:: 2010? Past Psychological History: No Psychological Hx Reported Smoking Status: Never smoker Past Alcohol Use History: None Reported Past Drug Use History: None Reported - Past Family History Brother(s) Family Medical History: Deep Vein Thrombosis (DVT) Mother Family Medical History: CVA/TIA General Exam Limitations: no limitations General appearance: alert, in no apparent distress Head exam: Present: atraumatic, normocephalic, normal inspection Eye exam: Present: normal appearance, PERRL, EOMI. Absent: scleral icterus, conjunctival injection, periorbital swelling ENT exam: Present: normal exam, mucous membranes moist Neck exam: Present: normal inspection. Absent: tenderness, meningismus, lymphadenopathy Respiratory exam: Present: normal lung sounds bilaterally. Absent: respiratory distress, wheezes, rales, rhonchi, stridor Cardiovascular Exam: Present: regular rate, normal rhythm, normal heart sounds. Absent: systolic murmur, diastolic murmur, rubs, gallop, clicks GI/Abdominal exam: Present: soft, normal bowel sounds. Absent: distended, tenderness, guarding, rebound, rigid Extremities exam: Present: normal inspection, full ROM, normal capillary refill. Absent: tenderness, pedal edema, joint swelling, calf tenderness Back exam: Present: normal inspection Neurological exam: Present: alert, oriented X3, CN II-XII intact Psychiatric exam: Present: normal affect, normal mood Skin exam: Present: warm, dry, intact, normal color. Absent: rash Course Vital Signs 01/01/20 22:30 Temperature 97.7 F Pulse Rate 78 Respiratory 18 Rate Blood Pressure 149/78 O2 Sat by Pulse 95 Oximetry - Reevaluation(s) Reevaluation #1: 01/01/20 22:48 Medical record is reviewed - Consultations Consultation #1: Spoke with Dr. Cm is okay for admission Chest Pain MDM - MDM 79 male DF for evaluation of chest pain history of CAD we will admit this patient for chest pain observation for EKG otherwise negative here in the ER. Patient can be admitted for cardiac observation Disposition Clinical Impression: Coronary artery disease, Atypical chest pain, Chest pain Disposition: ADMITTED IP TO THIS HOSP Condition: Good Is patient prescribed a controlled substance at d/c from ED?: No Referrals: Sissy Covarrubias MD [Primary Care Provider] - 1-2 days
--- NOTE | 2020-01-01 23:18 | XR ---
EXAMINATION TYPE: XR chest 2V DATE OF EXAM: 01/01/2020 COMPARISON: 11/04/2014 HISTORY: Chest pain TECHNIQUE: FINDINGS: There is no heart failure nor confluent pneumonic infiltrate. Costophrenic angles are clear . Bony thorax is intact. There are chest leads. IMPRESSION: No active cardiopulmonary disease. Normal heart. No change.
[2020-01-01 23:22] LABS: Basophils % (A) 0 %; Eosinophils # (A) 0.3 k/uL (0-0.7); Eosinophils % (A) 4 %; HCT 40.2 % (39.0-53.0); HGB 13.6 gm/dL (13.0-17.5); Lymphocytes # (A) 1.2 k/uL (1.0-4.8); Lymphocytes % (A) 17 %; MCH 33.6 pg (25.0-35.0); MCHC 33.7 g/dL (31.0-37.0); MCV 99.5 fL (80.0-100.0); Mean Platelet Volume 9.4; Monocytes # (A) 0.6 k/uL (0-1.0); Monocytes % (A) 9 %; Neutrophils # (A) 4.6 k/uL (1.3-7.7); Neutrophils % (A) 67 %; Platelet Count 136 k/uL (150-450); RBC 4.04 m/uL (4.30-5.90); RDW 12.4 % (11.5-15.5); WBC 6.9 k/uL (3.8-10.6)
[2020-01-01 23:33] LABS: Albumin 4.2 g/dL (3.5-5.0); Calcium 9.8 mg/dL (8.4-10.2); Magnesium 1.9 mg/dL (1.6-2.3); Potassium 4.1 mmol/L (3.5-5.1); Total Bilirubin 1.3 mg/dL (0.2-1.3); Total Protein 7.1 g/dL (6.3-8.2)
[2020-01-01 23:34] LABS: Partial Thromboplastin Time 22.9 sec (22.0-30.0); Prothrombin Time 10.4 sec (9.0-12.0)
[2020-01-02] MEDS ORDERED: ASPIRIN 81 MG PO STA (00:21)
[2020-01-02] MEDS ORDERED: NITROGLYCERIN SL TABS 0.4 MG TAB SUBLINGUAL PRN ×2 (00:21→09:34)
--- NOTE | 2020-01-02 00:29 | US ---
EXAMINATION TYPE: US abdomen limited DATE OF EXAM: 01/02/2020 COMPARISON: NONE CLINICAL HISTORY: pain. chest pain that is now in throat, cholecystectomy, known renal stones EXAM MEASUREMENTS: Liver Length: 14.8 cm Gallbladder Wall: Surgically absent CBD: 0.8 cm Right Kidney: 12.9 x 5.6 x 5.6 cm *overlying bowel gas limits exam Pancreas: not seen due to gas Liver: due to high location within ribcage, intercostal views obtain, wnl Gallbladder: Surgically absent Evidence for sonographic Mejía's sign: no CBD: wnl Right Kidney: 1.2cm inferior pole renal stone IMPRESSION: Nonobstructing large right renal calculus. No hydronephrosis. No dilated ducts. There is probably isabella e fatty infiltration of the liver.
[2020-01-02] MEDS: SODIUM CHLORIDE 0.9% 1,000 ML IV SCH ×3 (01:18→20:05)
[2020-01-02 06:50] LABS: Glucose,Whole Blood 171 mg/dL (75-99)
--- NOTE | 2020-01-02 08:50 | P.CRDCN ---
History of Present Illness Consult date: 01/02/20 Chief complaint: Chest pain History of present illness: This is a very pleasant 79-year-old gentleman who sees Dr. Diop in the office with history of coronary artery disease and prior stenting of the RCA in 2004 and the left circumflex in 2018 as well as hypertension and dyslipidemia presented to the hospital complaining of chest discomfort. He was with his usual state of health where he was at a high school basketball game when he s tarted experiencing chest discomfort. His symptoms started with discomfort in the back of the neck then it radiated toward the jaw as well as toward the chest. The patient described the pain as dull. No significant symptoms of sweating, nausea, or vomiting. He did have some shortness of breath with the pain. Currently the patient is pain-free but he does have mild shortness of breath. He denies any dizziness or lightheadedness, heart racing or fluttering, or syncope. EKG showed sinus rhythm without any significant ST or T-wave abnormalities. The cardiac enzymes were checked and came in to be unremarkable. The chest x-ray did not show any acute abnormalities. Last heart catheterizat ion was performed in September, when he was found to have severe disease involving OM1 and OM 2 of the left circumflex where he underwent stenting of both and also intermediate to severe disease involving the LAD which was treated medically because it was felt that the disease was not critical. The patient states clearly that the discomfort is not similar to what he had before. I am going to get the patient up and around. If he is asymptomatic he possibly can be discharged home after adding oral nitrates the current medical regimen. 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 REPAIR FX JAW. KIDNEY STONE -LITHOTRIPSY. URETERAL STENTS WITH LATER REMOVAL Past Anesthesia/Blood Transfusion Reactions: No Reported Reaction Date of Last Stent Placement:: 2019 Past Psychological History: No Psychological Hx Reported Smoking Status: Never smoker Past Alcohol Use History: None Reported Past Drug Use History: None Reported Additional Drug Use History / Comment(s): USES CBD OIL-INSTRUCTED TO REFRAIN FROM USE FOR AT LEAST 24 HOURS PRIOR TO PROCEDURE - Past Family History Brother(s) Family Medical History: Deep Vein Thrombosis (DVT) Mother Family Medical History: CVA/TIA Medications and Allergies Home Medications Medication Instructions Recorded Confirmed Type Alfuzosin HCl [Uroxatral ER] 10 mg PO HS 09/28/19 01/02/20 History Calcium Carb/Magnesium Ox,Carb 2 tab PO DAILY 09/28/19 01/02/20 History [James-Mag 500-250 MG Chewable] Cbd Oil 500 mg SUBLINGUAL BID 09/28/19 01/02/20 History Melatonin 5 mg PO HS 09/28/19 01/02/20 History Naproxen Sodium [Aleve] 220 mg PO DAILY PRN 09/28/19 01/02/20 History Prasterone (Dhea) [Dhea] 50 mg PO DAILY 09/28/19 01/02/20 History Somnapur 1 tab PO HS 09/28/19 01/02/20 History Thyroid,Pork [[place] Thyroid] 60 mg PO DAILY 09/28/19 01/02/20 History Zynergy 1 tab PO DAILY 09/28/19 01/02/20 History Aspirin 81 mg PO DAILY chew 10/02/19 01/02/20 Rx Atorvastatin [Lipitor] 80 mg PO HS #30 tab 10/02/19 01/02/20 Rx Nitroglycerin Sl Tabs [Nitrostat] 0.4 mg SUBLINGUAL Q5M PRN #20 tab 10/02/19 01/02/20 Rx Prasugrel [Effient] 10 mg PO DAILY #30 tab 10/02/19 01/02/20 Rx Tamsulosin [Flomax] 0.4 mg PO HS #30 cap.er.24h 10/02/19 01/02/20 Rx Latanoprost [Xalatan 0.005%] 1 drop BOTH EYES HS 01/02/20 01/02/20 History Allergies Allergy/AdvReac Type Severity Reaction Status Date / Time No Known Allergies Allergy Verified 01/01/20 22:32 Physical Exam Vitals: Vital Signs Temp Pulse Pulse Resp BP BP Pulse Ox 01/02/20 08:00 98.3 F 61 18 112/70 98 01/02/20 05:09 97.8 F 66 18 119/68 97 01/02/20 02:30 69 18 01/02/20 01:42 98.6 F 69 18 160/80 99 01/02/20 01:13 97.8 F 62 18 135/71 99 01/01/20 22:30 97.7 F 78 18 149/78 95 Intake and Output 01/01/20 01/02/20 01/02/20 22:59 06:59 14:59 Intake Total 0 Balance 0 Intake: Intake, IV Titration 0 Amount Sodium Chloride 0.9% 1, 0 000 ml @ 100 mls/hr IV . Q10H [facility] Rx#:[id number] Other: # Voids 1 Weight 87.997 kg 86.4 kg - Constitutional General appearance: no acute distress - Respiratory Respiratory: bilateral: CTA - Cardiovascular Rhythm: regular Heart sounds: normal: S1, S2 Results 01/01/20 22:51 01/01/20 22:51 Cardiac Enzymes 01/01/20 01/01/20 01/02/20 Range/Units 22:51 22:51 05:41 AST 129 H (17-59) U/L Troponin I <0.012 <0.012 (0.000-0.034) ng/mL Coagulation 01/01/20 Range/Units 22:51 PT 10.4 (9.0-12.0) sec APTT 22.9 (22.0-30.0) sec CBC 01/01/20 Range/Units 22:51 WBC 6.9 (3.8-10.6) k/uL RBC 4.04 L (4.30-5.90) m/uL Hgb 13.6 (13.0-17.5) gm/dL Hct 40.2 (39.0-53.0) % Plt Count 136 L (150-450) k/uL Comprehensive Metabolic Panel 01/01/20 Range/Units 22:51 Sodium 140 (137-145) mmol/L Potassium 4.1 (3.5-5.1) mmol/L Chloride 104 (98-107) mmol/L Carbon Dioxide 27 (22-30) mmol/L BUN 17 (9-20) mg/dL Creatinine 1.10 (0.66-1.25) mg/dL Glucose 263 H (74-99) mg/dL Calcium 9.8 (8.4-10.2) mg/dL AST 129 H (17-59) U/L ALT 119 H (4-49) U/L Alkaline Phosphatase 137 H (38-126) U/L Total Protein 7.1 (6.3-8.2) g/dL Albumin 4.2 (3.5-5.0) g/dL Current Medications Generic Name Dose Route Start Last Admin Trade Name Mohit PRN Reason Stop Dose Admin Aspirin 325 mg 01/03/20 09:00 Aspirin PO DAILY [facility] Sodium Chloride 1,000 mls @ 100 mls/hr 01/02/20 00:30 01/02/20 01:18 Saline 0.9% IV 100 mls/hr .Q10H [facility] Administration Nitroglycerin 0.4 mg 01/02/20 00:21 Nitrostat SUBLINGUAL Q5M PRN Chest Pain Intake and Output 01/01/20 01/02/20 01/02/20 22:59 06:59 14:59 Intake Total 0 Balance 0 Intake: Intake, IV Titration 0 Amount Sodium Chloride 0.9% 1, 0 000 ml @ 100 mls/hr IV . Q10H [facility] Rx#:[id number] Other: # Voids 1 Weight 87.997 kg 86.4 kg 01/01/20 22:51 01/01/20 22:51 Assessment and Plan Assessment: Assessment #1 chest discomfort #2 CAD and prior stenting Plan #1 acute coronary event was ruled out #2 we'll exert the patient to induce any symptoms #3 if he is asymptomatic he possibly can be discharged home #4 if he develop any more episodes of chest discomfort with exertion I would consider proceeding with coronary angiogram
[2020-01-02] MEDS ORDERED: NAPROXEN 250 MG TAB PO PRN (09:34)
[2020-01-02] MEDS ORDERED: CALCIUM CARB PO SCH (09:45)
[2020-01-02] MEDS ORDERED: [UNRECOGNIZED DRUG - OTHER] PO SCH (09:45)
--- NOTE | 2020-01-02 11:07 | P.HPIM ---
History of Present Illness H&P Date: 01/02/20 Chief Complaint: Chest pain Nick Ndiaye is a 79-year-old male patient of Dr. Covarrubias who presented to [facility] emergency room with a chief complaint of chest pain, patient states that he was at a basketball game sitting quietly when he started having headache in the back of his head subsequently he had some neck pain and pain in the upper chest area, patient had his drive him to emergency room he was evaluated in the emergency room and was admitted to the observation unit for further treatment, EKG in the emergency room revealed normal sinus rhythm without any acute abnormality, troponin level were normal. Patient has a known history of coronary artery disease, he had cardiac catheterization and angioplasty with stent placement in 2004 after an abnormal stress test, he also had abnormal stress test in September 2019 at that time he had angioplasty and 2 stent placement he is followed as outpatient by Dr. Diop. On evaluation in the emergency room patient had elevated liver enzymes including AST , ALT and alkaline phosphatase ultrasound of the abdomen was done and revealed mild fatty infiltration of the liver the gallbladder was surgically absent there was no evidence of stone or dilated Tatian in the common bile duct patient has evidence of right sided kidney stone. 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 REPAIR FX JAW. KIDNEY STONE -LITHOTRIPSY. URETERAL STENTS WITH LATER REMOVAL Past Anesthesia/Blood Transfusion Reactions: No Reported Reaction Date of Last Stent Placement:: 2018 Past Psychological History: No Psychological Hx Reported Smoking Status: Never smoker Past Alcohol Use History: None Reported Past Drug Use History: None Reported Additional Drug Use History / Comment(s): USES CBD OIL-INSTRUCTED TO REFRAIN FROM USE FOR AT LEAST 24 HOURS PRIOR TO PROCEDURE - Past Family History Brother(s) Family Medical History: Deep Vein Thrombosis (DVT) Mother Family Medical History: CVA/TIA Medications and Allergies Home Medications Medication Instructions Recorded Confirmed Type Alfuzosin HCl [Uroxatral ER] 10 mg PO HS 09/28/19 01/02/20 History Calcium Carb/Magnesium Ox,Carb 2 tab PO DAILY 09/28/19 01/02/20 History [James-Mag 500-250 MG Chewable] Cbd Oil 500 mg SUBLINGUAL BID 09/28/19 01/02/20 History Melatonin 5 mg PO HS 09/28/19 01/02/20 History Naproxen Sodium [Aleve] 220 mg PO DAILY PRN 09/28/19 01/02/20 History Prasterone (Dhea) [Dhea] 50 mg PO DAILY 09/28/19 01/02/20 History Somnapur 1 tab PO HS 09/28/19 01/02/20 History Thyroid,Pork [[place] Thyroid] 60 mg PO DAILY 09/28/19 01/02/20 History Zynergy 1 tab PO DAILY 09/28/19 01/02/20 History Aspirin 81 mg PO DAILY chew 10/02/19 01/02/20 Rx Atorvastatin [Lipitor] 80 mg PO HS #30 tab 10/02/19 01/02/20 Rx Nitroglycerin Sl Tabs [Nitrostat] 0.4 mg SUBLINGUAL Q5M PRN #20 tab 10/02/19 01/02/20 Rx Prasugrel [Effient] 10 mg PO DAILY #30 tab 10/02/19 01/02/20 Rx Tamsulosin [Flomax] 0.4 mg PO HS #30 cap.er.24h 10/02/19 01/02/20 Rx Latanoprost [Xalatan 0.005%] 1 drop BOTH EYES HS 01/02/20 01/02/20 History Allergies Allergy/AdvReac Type Severity Reaction Status Date / Time No Known Allergies Allergy Verified 01/01/20 22:32 Physical Exam Vitals: Vital Signs Temp Pulse Pulse Resp BP BP Pulse Ox 01/02/20 08:30 18 01/02/20 08:00 98.3 F 61 18 112/70 98 01/02/20 05:09 97.8 F 66 18 119/68 97 01/02/20 02:30 69 18 01/02/20 01:42 98.6 F 69 18 160/80 99 01/02/20 01:13 97.8 F 62 18 135/71 99 01/01/20 22:30 97.7 F 78 18 149/78 95 Intake and Output 01/01/20 01/02/2001/02/20 22:59 06:59 14:59 Intake Total 0 Balance 0 Intake: Intake, IV Titration 0 Amount Sodium Chloride 0.9% 1, 0 000 ml @ 100 mls/hr IV . Q10H [facility] Rx#:[id number] Other: Voiding Method Toilet # Voids 1 Weight 87.997 kg 86.4 kg In general patient is alert and oriented 3 in no apparent distress HEENT head normocephalic and atraumatic Neck is supple no JVD no goiter no lymphadenopathy no carotid bruit Chest exam reveals a few scattered rhonchi no wheezing Cardiac exam reveals regular heart sounds S1 and S2 no gallops no murmurs Abdomen is soft nontender no organomegaly with normal bowel sounds Extremity exam reveals no edema no cyanosis or clubbing Neurological examination reveals no gross focal deficit Results CBC & Chem 7: 01/01/20 22:51 01/01/20 22:51 Labs: Abnormal Lab Results - Last 24 Hours (Table) 01/01/20 01/01/20 01/02/20 Range/Units 22:51 22:51 06:49 RBC 4.04 L (4.30-5.90) m/uL Plt Count 136 L (150-450) k/uL Glucose 263 H (74-99) mg/dL POC Glucose (mg/dL) 171 H (75-99) mg/dL AST 129 H (17-59) U/L ALT 119 H (4-49) U/L Alkaline Phosphatase 137 H (38-126) U/L Thrombosis Risk Factor Assmnt - Choose All That Apply Any of the Below Risk Factors Present?: Yes Each Factor Represents 1 point: Acute [place], Obesity (BMI >25) Other Risk Factors: Yes Each Risk Factor Represents 3 Points: Age 75 years or older Other congenital or acquired thrombophilia - If yes, enter type in comment: No Thrombosis Risk Factor Assessment Total Risk Factor Score: 5 Thrombosis Risk Factor Assessment Level: High Risk Assessment and Plan Plan: #1 episode of chest pain, myocardial infarction ruled out patient had 3 sets of cardiac enzymes that are negative. Chest pain not typical for angina however due to patient's history of coronary artery disease with history of 3 stent placement in the past, cardiology consult was requested patient will have a stress test for further evaluation. #2 elevated liver enzymes, cause is unclear, could be related to fatty infiltration of the liver, patient could have passed a small common bile duct stone, however no evidence on ultrasound of any stone or common bile duct dilat ed Tatian/ #3 elevated glucose level. Patient has a known history of borderline diabetes, he is not maintained on any medications for that will check hemoglobin A1c #4 underlying history of hypothyroidism maintained on [place] Thyroid with check TSH #5 underlying history of hyperlipidemia maintained on Lipitor continue #6 recent history of 2 stent placement in September 2019 maintained on Effient continue #7 underlying history of BPH maintained on Flomax and Uroxatral #8 underlying history of kidney stones without evidence of obstruction at this time. Patient was evaluated by cardiology plan at this time is to proceed with stress test Will follow closely
[2020-01-02] MEDS: ASPIRIN 81 MG PO SCH (11:26)
[2020-01-02] MEDS: PRASUGREL 10 MG TAB PO SCH (11:26)
[2020-01-02 11:38] LABS: Glucose,Whole Blood 263 mg/dL (75-99)
[2020-01-02 16:38] LABS: Glucose,Whole Blood 245 mg/dL (75-99)
[2020-01-02] MEDS: INSULIN ASPART (NovoLOG) 100 UNIT/ML VIAL SQ SCH ×2 (17:54→20:31)
[2020-01-02] MEDS: ATORVASTATIN 80 MG TAB PO SCH (20:05)
[2020-01-02] MEDS: TAMSULOSIN 0.4 MG CAP.ER.24H PO SCH (20:05)
[2020-01-02] MEDS: MELATONIN 5 MG TABLET PO SCH (20:05)
[2020-01-02 20:16] LABS: Glucose,Whole Blood 210 mg/dL (75-99)
[2020-01-02 20:26] LABS: Hemoglobin A1C 9.2 % (4.0-6.0)
[2020-01-02] MEDS ORDERED: LATANOPROST 0.005% OPHTH DROPS 2.5 ML BTL BOTH EYES SCH (21:00)
[2020-01-03 05:57] LABS: Cholesterol 106 mg/dL (<200); HDL Cholesterol 37 mg/dL (40-60); LDL Cholesterol,Calculated 39 mg/dL (0-99); Triglycerides 149 mg/dL (<150)
[2020-01-03 06:43] LABS: Glucose,Whole Blood 186 mg/dL (75-99)
[2020-01-03] MEDS: INSULIN ASPART (NovoLOG) 100 UNIT/ML VIAL SQ SCH ×4 (08:06→20:09)
[2020-01-03] MEDS: ASPIRIN 81 MG PO SCH (08:06)
[2020-01-03] MEDS: PRASUGREL 10 MG TAB PO SCH (08:06)
[2020-01-03] MEDS: SODIUM CHLORIDE 0.9% 1,000 ML IV SCH ×3 (08:08→23:08)
[2020-01-03] MEDS: LATANOPROST 0.005% OPHTH DROPS 2.5 ML BTL BOTH EYES SCH (08:25)
[2020-01-03] MEDS ORDERED: ASPIRIN 325 MG TAB PO SCH (09:00)
[2020-01-03] MEDS ORDERED: CAFFEINE CITRATE 60 MG/3 ML VIAL IV PRN (09:06)
[2020-01-03] MEDS ORDERED: AMINOPHYLLINE 500 MG/20 ML VIAL IV PRN (09:06)
--- NOTE | 2020-01-03 09:12 | P.PN ---
Subjective Progress Note Date: 01/03/20 Principal diagnosis: Chest pain This is a very pleasant 79-year-old gentleman who sees Dr. Diop in the office with history of coronary artery disease and prior stenting of the RCA in 2004 and the left circumflex in 2018 as well as hypertension and dyslipidemia presented to the hospital complaining of chest discomfort. He was with his usual state of health where he was at a high school basketball game when he started experiencing chest discomfort. His symptoms started with discomfort in the back of the neck then it radiated toward the jaw as well as toward the ches t. The patient described the pain as dull. No significant symptoms of sweating, nausea, or vomiting. He did have some shortness of breath with the pain. Currently the patient is pain-free but he does have mild shortness of breath. He denies any dizziness or lightheadedness, heart racing or fluttering, or syncope. EKG showed sinus rhythm without any significant ST or T-wave abnormalities. The cardiac enzymes were checked and came in to be unremarkable. The chest x-ray did not show any acute abnormalities. Last heart catheterization was performed in September, when he was found to have severe disease involving OM1 and OM 2 of the left circumflex where he underwent stenting of both and also intermediate to severe disease involving the LAD which was treated medically because it was felt that the disease was not critical. The patient states clearly that the discomfort is not similar to what he had before. I am going to get the patient up and around. If he is asymptomatic he possibly can be discharged home after adding oral nitrates the current medical regimen. He continues to be having symptoms, I would consider proceeding with coronary angiogram The patient was seen today, January [id number]. He is not having any chest pain or chest discomfort today but he did have some yesterday. Having said that M going to schedule the patient to undergo a Lexiscan Cardiolite stress test tomorrow morning. We'll follow-up with the patient. Objective - Vital Signs Vital signs: Vital Signs Temp 98.2 F 01/03/20 07:21 Pulse 60 01/03/20 07:21 Resp 18 01/03/20 07:21 BP 106/66 01/03/20 07:21 Pulse Ox 95 01/03/20 07:21 Intake & Output 01/02/20 01/03/2020 18:59 06:59 18:59 Intake Total 300 700 Balance 300 700 Intake: Intake, IV Titration 700 Amount Sodium Chloride 0.9% 1, 700 000 ml @ 100 mls/hr IV . Q10H [facility] Rx#:[id number] Oral 300 Other: Voiding Method Toilet Toilet Toilet # Voids 1 1 - Constitutional General appearance: Present: no acute distress - Respiratory Respiratory: bilateral: CTA - Cardiovascular Rhythm: regular Heart sounds: normal: S1, S2 - Labs CBC & Chem 7: 01/01/20 22:51 01/01/20 22:51 Labs: Abnormal Lab Results - Last 24 Hours (Table) 01/01/20 01/02/20 01/02/20 Range/Units 08:00 11:36 16:36 POC Glucose (mg/dL) 263 H 245 H (75-99) mg/dL Hemoglobin A1c 9.2 H (4.0-6.0) % HDL Cholesterol (40-60) mg/dL 01/02/20 01/03/20 01/03/20 Range/Units 20:09 05:01 06:42 POC Glucose (mg/dL) 210 H 186 H (75-99) mg/dL Hemoglobin A1c (4.0-6.0) % HDL Cholesterol 37 L (40-60) mg/dL Assessment and Plan Assessment: Assessment #1 chest discomfort #2 CAD and prior stenting Plan #1 acute coronary event was ruled out #2 we'll schedule the patient to undergo a stress test tomorrow morning
--- NOTE | 2020-01-03 10:47 | P.PN ---
Subjective Progress Note Date: 01/03/20 Nick Ndiaye is a 79-year-old male patient of Dr. Covarrubias who presented to [facility] emergency room with a chief complaint of chest pain, patient states that he was at a basketball game sitting quietly when he started having headache in the back of his head subsequently he had some neck pain and pain in the upper chest area, patient had his drive him to emergency room he was evaluated in the emergency room and was admitted to the observation unit for further treatment, EKG in the emergency room revealed normal sinus rhythm without any acute abnormality, troponin level were normal. Patient has a known history of coronary artery disease, he had cardiac catheterization and angioplasty with stent placement in 2004 after an abnormal stress test, he also had abnormal stress test in September 2019 at that time he had angioplasty and 2 stent placement he is followed as outpatient by Dr. Diop. On evaluation in the emergency room patient had elevated liver enzymes including AST , ALT and alkaline phosphatase ultrasound of the abdomen was done and revealed mild fatty infiltration of the liver the gallbladder was surgically absent there was no evidence of stone or dilatation in the common bile duct patient has evidence of right sided kidney stone. On 01/03/2020 patient was seen and examined on the medical floor he is alert and oriented 3 in no apparent distress, there is no fever or chills no headache or dizziness no chest pain no shortness of breath no cough no nausea or vomiting no abdominal pain no diarrhea no burning with urination no frequency or urgency and no hematuria. Case was discussed with Dr. Short feed inspection supervisor, plan is for stress test in a.m. tomorrow Objective - Vital Signs Vital signs: Vital Signs Temp 98.2 F 01/03/20 07:21 Pulse 60 01/03/20 07:21 Resp 18 01/03/20 07:21 BP 106/66 01/03/20 07:21 Pulse Ox 95 01/03/20 07:21 Intake & Output 01/02/20 01/03/20 01/03/20 18:59 06:59 18:59 Intake Total 300 700 Balance 300 700 Intake: Intake, IV Titration 700 Amount Sodium Chloride 0.9% 1, 700 000 ml @ 100 mls/hr IV . Q10H PEPPER Rx#:[id number] Oral 300 Other: Voiding Method Toilet Toilet Toilet # Voids 1 1 - Exam In general patient is alert and oriented 3 in no apparent distress HEENT head normocephalic and atraumatic Neck is supple no JVD no goiter no lymphadenopathy no carotid bruit Chest exam reveals a few scattered rhonchi no wheezing Cardiac exam reveals regular heart sounds S1 and S2 no gallops no murmurs Abdomen is soft nontender no organomegaly with normal bowel sounds Extremity exam reveals no edema no cyanosis or clubbing Neurological examination reveals no gross focal deficit - Labs CBC & Chem 7: 01/01/20 22:51 01/01/20 22:51 Labs: Abnormal Lab Results - Last 24 Hours (Table) 01/01/20 01/02/20 01/02/20 Range/Units 08:00 11:36 16:36 POC Glucose (mg/dL) 263 H 245 H (75-99) mg/dL Hemoglobin A1c 9.2 H (4.0-6.0) % HDL Cholesterol (40-60) mg/dL 01/02/20 01/03/20 01/03/20 Range/Units 20:09 05:01 06:42 POC Glucose (mg/dL) 210 H 186 H (75-99) mg/dL Hemoglobin A1c (4.0-6.0) % HDL Cholesterol 37 L (40-60) mg/dL Assessment and Plan Plan: #1 episode of chest pain, myocardial infarction ruled out patient had 3 sets of cardiac enzymes that are negative. Chest pain not typical for angina however due to patient's history of coronary artery disease with history of 3 stent placement in the past, cardiology consult was requested patient will have a s tress test for further evaluation. #2 elevated liver enzymes, cause is unclear, could be related to fatty infiltration of the liver, patient could have passed a small common bile duct stone, however no evidence on ultrasound of any stone or common bile duct dilated Tatian/ #3 elevated glucose level. Patient has a known history of borderline diabetes, he is not maintained on any medications for that will check hemoglobin A1c #4 underlying history of hypothyroidism maintained on Zanoni Thyroid with check TSH #5 underlying history of hyperlipidemia maintained on Lipitor continue #6 recent history of 2 stent placement in September 2019 maintained on Effient continue #7 underlying history of BPH maintained on Flomax and Uroxatral #8 underlying history of kidney stones without evidence of obstruction at this time. Patient was evaluated by cardiology plan at this time is to proceed with stress test in a.m. tomorrow Will follow closely, if stable possible discharge to home tomorrow
[2020-01-03 11:55] LABS: Glucose,Whole Blood 252 mg/dL (75-99)
[2020-01-03 13:18] VITALS: BMI 27.3
[2020-01-03 16:55] LABS: Glucose,Whole Blood 166 mg/dL (75-99)
[2020-01-03] MEDS: TAMSULOSIN 0.4 MG CAP.ER.24H PO SCH (20:07)
[2020-01-03] MEDS: ATORVASTATIN 80 MG TAB PO SCH (20:07)
[2020-01-03] MEDS: MELATONIN 5 MG TABLET PO SCH (20:07)
[2020-01-03 20:08] LABS: Glucose,Whole Blood 212 mg/dL (75-99)
[2020-01-04 05:52] LABS: Basophils % (A) 1 %; Eosinophils # (A) 0.3 k/uL (0-0.7); Eosinophils % (A) 6 %; HCT 37.6 % (39.0-53.0); HGB 12.4 gm/dL (13.0-17.5); Lymphocytes % (A) 21 %; MCH 32.8 pg (25.0-35.0); MCV 99.4 fL (80.0-100.0); Mean Platelet Volume 9.1; Monocytes # (A) 0.4 k/uL (0-1.0); Monocytes % (A) 8 %; Neutrophils % (A) 62 %; Platelet Count 126 k/uL (150-450); RBC 3.79 m/uL (4.30-5.90); RDW 12.3 % (11.5-15.5); WBC 4.8 k/uL (3.8-10.6)
[2020-01-04 06:03] LABS: Albumin 3.2 g/dL (3.5-5.0); Calcium 8.9 mg/dL (8.4-10.2); Potassium 4.5 mmol/L (3.5-5.1); Total Bilirubin 1.9 mg/dL (0.2-1.3)
[2020-01-04] MEDS ORDERED: REGADENOSON 0.4 MG/5 ML SYRINGE IV ONE (07:00)
[2020-01-04] MEDS ORDERED: AMINOPHYLLINE 500 MG/20 ML VIAL IV PRN (07:00)
[2020-01-04] MEDS ORDERED: CAFFEINE CITRATE 60 MG/3 ML VIAL IV PRN (07:00)
[2020-01-04 07:07] LABS: Glucose,Whole Blood 166 mg/dL (75-99)
[2020-01-04] MEDS ORDERED: DIPYRIDAMOLE 50 MG in SODIUM CHLORIDE 0.9% 40 ML IV ONE (09:00)
--- NOTE | 2020-01-04 10:37 | P.PN ---
Subjective This is a pleasant 79-year-old male past medical history significant for coronary artery disease status post stent placement of the RCA in 2005 and circumflex in 2019, hypertension and dyslipidemia. He follows my office with Dr. Diop. In the previous 24 hours he has had no further symptoms of chest discomfort, shortness of breath, dizziness or palpitations. Blood pressure 111/68 heart rate 57 afebrile maintaining oxygen saturation on room air. Laboratory data reviewed, WBC 4.8, hemoglobin 12.4, platelets 126, sodium 138, potassium 4.5, creatinine 0.99, total bilirubin 1.9, AST 99, ALT 92. Currently maintained on aspirin 81 mg daily, atorvastatin 80 mg daily and Effient 10 mg daily. GENERAL: Well-appearing, well-nourished and in no acute distress. NECK: Supple without JVD or thyromegaly. LUNGS: Breath sounds clear to auscultation bilaterally. Respiration equal and unlabored. No wheezes, rales or rhonchi. HEART: Regular rate and rhythm without murmurs, rubs or gallops. S1 and S2 heard. EXTREMITIES: Normal range of motion, no edema. No clubbing or cyanosis. Peripheral pulses intact. ASSESSMENT Chest pain, an acute coronary event has been ruled out. Thrombocytopenia Elevated liver enzymes, unknown etiology History of coronary artery disease status post PCI Hypertension Dyslipidemia PLAN Proceed with stress test as previously ordered. If abnormal we will proceed with coronary angiography. If normal he may be discharged from a cardiac perspective to follow up with Dr. Diop in the office. Nurse Practitioner note has been reviewed, I agree with a documented findings and plan of care. Patient was seen and examined. Objective - Vital Signs Vital signs: Vital Signs Temp 97.4 F L 01/04/20 07:05 Pulse 57 L 01/04/20 07:05 Resp 18 01/04/20 07:05 BP 111/68 01/04/20 07:05 Pulse Ox 96 01/04/20 07:05 Intake & Output 01/03/20 01/04/20 01/04/20 18:59 06:59 18:59 Weight 86.4 kg Other: Voiding Method Toilet Toilet Toilet # Voids 2 1 - Labs CBC & Chem 7: 01/04/20 05:18 01/04/20 05:18 Labs: Abnormal Lab Results - Last 24 Hours (Table) 01/03/20 01/03/20 01/03/20 Range/Units 11:53 16:49 20:07 RBC (4.30-5.90) m/uL Hgb (13.0-17.5) gm/dL Hct (39.0-53.0) % Plt Count (150-450) k/uL Chloride (98-107) mmol/L Glucose (74-99) mg/dL POC Glucose (mg/dL) 252 H 166 H 212 H (75-99) mg/dL Total Bilirubin (0.2-1.3) mg/dL AST (17-59) U/L ALT (4-49) U/L Total Protein (6.3-8.2) g/dL Albumin (3.5-5.0) g/dL 01/04/20 01/04/20 01/04/20 Range/Units 05:18 05:18 07:03 RBC 3.79 L (4.30-5.90) m/uL Hgb 12.4 L (13.0-17.5) gm/dL Hct 37.6 L (39.0-53.0) % Plt Count 126 L (150-450) k/uL Chloride 109 H (98-107) mmol/L Glucose 159 H (74-99) mg/dL POC Glucose (mg/dL) 166 H (75-99) mg/dL Total Bilirubin 1.9 H (0.2-1.3) mg/dL AST 99 H (17-59) U/L ALT 92 H (4-49) U/L Total Protein 6.0 L (6.3-8.2) g/dL Albumin 3.2 L (3.5-5.0) g/dL
[2020-01-04] MEDS: INSULIN ASPART (NovoLOG) 100 UNIT/ML VIAL SQ SCH ×4 (11:29→20:24)
[2020-01-04 11:45] LABS: Glucose,Whole Blood 163 mg/dL (75-99)
[2020-01-04] MEDS: ASPIRIN 81 MG PO SCH (11:59)
[2020-01-04] MEDS: LATANOPROST 0.005% OPHTH DROPS 2.5 ML BTL BOTH EYES SCH (11:59)
[2020-01-04] MEDS: PRASUGREL 10 MG TAB PO SCH (11:59)
--- NOTE | 2020-01-04 12:27 | NM ---
EXAMINATION TYPE: NM stress persantine cardiolit DATE OF EXAM: 01/04/2020 COMPARISON: NONE HISTORY: Chest pain TECHNIQUE: After the intravenous administration of 10.2 mCi Tc 99m Sestamibi - Cardiolite resting SP ECT images acquired 45 minutes post injection. The patient received 50 mg Persantine, 26.7 mCi Tc 99m Sestamibi - Stress images obtained 40 minutes post injection FINDINGS: Review of stress and rest SPECT images demonstrates decreased radiopharmaceutical uptake along the in ferior wall the left ventricle on stress as compared to rest images towards the base of the heart ext ending into the lateral wall as well as along the septum towards the apex on stress as compared to re st images. Gated analysis shows normal wall motion with an estimated left ventricular ejection fract ion of 63 %. IMPRESSION: Pharmacologically induced left ventricular myocardial ischemia.
--- NOTE | 2020-01-04 13:06 | P.PN ---
Subjective Progress Note Date: 01/04/20 Nick Ndiaye is a 79-year-old male patient of Dr. Covarrubias who presented to [facility] emergency room with a chief complaint of chest pain, patient states that he was at a basketball game sitting quietly when he started having headache in the back of his head subsequently he had some neck pain and pain in the upper chest area, patient had his drive him to emergency room he was evaluated in the emergency room and was admitted to the observation unit for further treatment, EKG in the emergency room revealed normal sinus rhythm without any acute abnormality, troponin level were normal. Patient has a known history of coronary artery disease, he had cardiac catheterization and angioplasty with stent placement in 2004 after an abnormal stress test, he also had abnormal stress test in September 2019 at that time he had angioplasty and 2 stent placement he is followed as outpatient by Dr. Diop. On evaluation in the emergency room patient had elevated liver enzymes including AST , ALT and alkaline phosphatase ultrasound of the abdomen was done and revealed mild fatty infiltration of the liver the gallbladder was surgically absent there was no evidence of stone or dilatation in the common bile duct patient has evidence of right sided kidney stone. On 01/03/2020 patient was seen and examined on the medical floor he is alert and oriented 3 in no apparent distress, there is no fever or chills no headache or dizziness no chest pain no shortness of breath no cough no nausea or vomiting no abdominal pain no diarrhea no burning with urination no frequency or urgency and no hematuria. Case was discussed with Dr. Short security compliance specialist, plan is for stress test in a.m. tomorrow On 01/04/2020 patient is alert and oriented 3. Patient did undergo stress test. Per nursing staff patient did have a positive stress test. Likely patient will undergo cardiac cath tomorrow per cardiology. Attempting patient denies chest pain or shortness breath. Patient denies nausea vomiting or diarrhea. Patient denies any urinary burning or frequency Objective - Vital Signs Vital signs: Vital Signs Temp 97.5 F L 01/04/20 11:44 Pulse 66 01/04/20 11:44 Resp 18 01/04/20 11:44 BP 136/77 01/04/20 11:44 Pulse Ox 96 01/04/20 11:44 Intake & Output 02/23/20 02/24/20 02/24/20 18:59 06:59 18:59 Weight 86.4 kg 86.4 kg Other: Voiding Method Toilet Toilet Toilet # Voids 2 1 - Exam In general patient is alert and oriented 3 in no apparent distress HEENT head normocephalic and atraumatic Neck is supple no JVD no goiter no lymphadenopathy no carotid bruit Chest exam reveals a few scattered rhonchi no wheezing Cardiac exam reveals regular heart sounds S1 and S2 no gallops no murmurs Abdomen is soft nontender no organomegaly with normal bowel sounds Extremity exam reveals no edema no cyanosis or clubbing Neurological examination reveals no gross focal deficit - Labs CBC & Chem 7: 01/04/20 05:18 01/04/20 05:18 Labs: Abnormal Lab Results - Last 24 Hours (Table) 01/03/20 01/03/20 01/04/20 Range/Units 16:49 20:07 05:18 RBC 3.79 L (4.30-5.90) m/uL Hgb 12.4 L (13.0-17.5) gm/dL Hct 37.6 L (39.0-53.0) % Plt Count 126 L (150-450) k/uL Chloride (98-107) mmol/L Glucose (74-99) mg/dL POC Glucose (mg/dL) 166 H 212 H (75-99) mg/dL Total Bilirubin (0.2-1.3) mg/dL AST (17-59) U/L ALT (4-49) U/L Total Protein (6.3-8.2) g/dL Albumin (3.5-5.0) g/dL 01/04/20 01/04/20 01/04/20 Range/Units 05:18 07:03 11:41 RBC (4.30-5.90) m/uL Hgb (13.0-17.5) gm/dL Hct (39.0-53.0) % Plt Count (150-450) k/uL Chloride 109 H (98-107) mmol/L Glucose 159 H (74-99) mg/dL POC Glucose (mg/dL) 166 H 163 H (75-99) mg/dL Total Bilirubin 1.9 H (0.2-1.3) mg/dL AST 99 H (17-59) U/L ALT 92 H (4-49) U/L Total Protein 6.0 L (6.3-8.2) g/dL Albumin 3.2 L (3.5-5.0) g/dL Assessment and Plan Assessment: #1 episode of chest pain, myocardial infarction ruled out patient had 3 sets of cardiac enzymes that are negative. Chest pain not typical for angina however due to patient's history of coronary artery disease with history of 3 stent placement in the past. Patient did have positive stress test. Patient will likely undergo cardiac cath tomorrow per cardiology #2 elevated liver enzymes, cause is unclear, could be related to fatty infiltration of the liver, patient could have passed a small common bile duct stone, however no evidence on ultrasound of any stone or common bile duct dilated Tatian/. Liver enzymes are trending down #3 elevated glucose level. Patient has a known history of borderline diabetes, he is not maintained on any medications for that will check hemoglobin A1c. A1c 9.2. Patient will be discharged home on metformin and glipizide currently on hold due to possible cardiac cath tomorrow #4 underlying history of hypothyroidism maintained on [place] Thyroid with check TSH. TSH level I.100 #5 underlying history of hyperlipidemia maintained on Lipitor continue #6 recent history of 2 stent placement in September 2019 maintained on Effient continue #7 underlying history of BPH maintained on Flomax and Uroxatral #8 underlying history of kidney stones without evidence of obstruction at this time.
[2020-01-04] MEDS ORDERED: ALPRAZolam 0.5 MG TAB PO PRN (13:51)
[2020-01-04] MEDS ORDERED: SODIUM CHLORIDE 0.9% 1,000 ML in EMPTY BAG 1 BAG IV ONE (13:51)
[2020-01-04] MEDS ORDERED: ALPRAZolam 0.25 MG TAB PO PRN (13:51)
[2020-01-04 16:45] LABS: Glucose,Whole Blood 174 mg/dL (75-99)
--- NOTE | 2020-01-04 17:59 | EST ---
EXERCISE STRESS AGE: 79 SEX: M HT: 70" WT: 190 pounds PROTOCOL: Persantine Cardiolite STAGE: DURATION OF EXERCISE: HEART RATE REST: 62 BLOOD PRESSURE REST: 115/68 MAXIMUM HEART RATE ACHIEVED: 82 MAXIMUM BLOOD PRESSURE: 116/55 85% MPHR: 122 100% MPHR: 143 METS: INDICATIONS: Chest pain CLINICAL INFORMATION: This is a 79-year-old male patient who underwent Persantine Cardiolite stress test for chest pain evaluation. Baseline heart rate 62 beats per minute. Baseline blood pressure 115/68 mmHg. Baseline 12-lead ECG shows sinus rhythm with normal ST segments. Patient received Persantine infusion per protocol. No change in heart rate or blood pressure. No ECG abnormalities noted. Nuclear portion will be reported separately. MMODL / IJN: [id number] /
[2020-01-04] MEDS: SODIUM CHLORIDE 0.9% 1,000 ML IV SCH ×2 (20:15→20:30)
[2020-01-04 20:22] LABS: Glucose,Whole Blood 196 mg/dL (75-99)
[2020-01-04] MEDS: TAMSULOSIN 0.4 MG CAP.ER.24H PO SCH (20:24)
[2020-01-04] MEDS: ATORVASTATIN 80 MG TAB PO SCH (20:24)
[2020-01-04] MEDS: MELATONIN 5 MG TABLET PO SCH (20:25)
[2020-01-05 06:38] LABS: Glucose,Whole Blood 170 mg/dL (75-99)
[2020-01-05 07:08] LABS: Basophils % (A) 1 %; Eosinophils # (A) 0.3 k/uL (0-0.7); Eosinophils % (A) 5 %; HGB 12.3 gm/dL (13.0-17.5); Lymphocytes % (A) 21 %; MCH 32.5 pg (25.0-35.0); MCHC 33.3 g/dL (31.0-37.0); MCV 97.6 fL (80.0-100.0); Mean Platelet Volume 9.7; Monocytes # (A) 0.5 k/uL (0-1.0); Monocytes % (A) 10 %; Neutrophils # (A) 2.9 k/uL (1.3-7.7); Neutrophils % (A) 60 %; Platelet Count 139 k/uL (150-450); RBC 3.79 m/uL (4.30-5.90); RDW 12.6 % (11.5-15.5); WBC 4.8 k/uL (3.8-10.6)
[2020-01-05 07:30] LABS: Albumin 3.2 g/dL (3.5-5.0); Calcium 8.6 mg/dL (8.4-10.2); Potassium 4.1 mmol/L (3.5-5.1); Total Bilirubin 1.5 mg/dL (0.2-1.3); Total Protein 5.9 g/dL (6.3-8.2)
[2020-01-05] MEDS: PRASUGREL 10 MG TAB PO SCH (08:31)
[2020-01-05] MEDS: LATANOPROST 0.005% OPHTH DROPS 2.5 ML BTL BOTH EYES SCH (08:31)
[2020-01-05] MEDS: ASPIRIN 81 MG PO SCH (08:31)
[2020-01-05] MEDS ORDERED: IV FLUID CONTINUATION 1,000 ML IV ONE (10:58)
[2020-01-05] MEDS ORDERED: MIDAZOLAM 2 MG/2 ML VIAL IVP ONE (11:42)
[2020-01-05] MEDS ORDERED: fentaNYL (PF) 50 MCG/ML 2 ML AMP IVP ONE (11:42)
[2020-01-05] MEDS ORDERED: LIDOCAINE 1% INJ 10MG/ML (20 ML MDV) SQ ONE (11:42)
[2020-01-05] MEDS ORDERED: VERAPAMIL SYRINGE (5 MG/10 ML) INTRAARTER ONE (11:45)
[2020-01-05] MEDS ORDERED: HEPARIN SODIUM 1,000 UN/ML (10ML VL) IV ONE (12:13)
[2020-01-05] MEDS ORDERED: ADENOSINE 90 MG in SODIUM CHLORIDE 0.9% 60 ML IVP ONE (12:19)
[2020-01-05] MEDS ORDERED: NITROGLYCERIN 1000MCG/10ML SYRINGE INTRACORON ONE (12:26)
[2020-01-05] MEDS ORDERED: IOPAMIDOL-370 125ML BTL INJ ONE (12:26)
[2020-01-05] MEDS ORDERED: ZOLPIDEM 5 MG TAB PO PRN (12:33)
[2020-01-05] MEDS ORDERED: RX INFO: IV CONTRAST WAS GIVEN 1 EACH MISC MISCELLANE PRN (12:33)
[2020-01-05] MEDS ORDERED: MAG HYDROX/AL HYDROX/SIMETH 30 ML CUP PO PRN (12:33)
[2020-01-05] MEDS ORDERED: ATROPINE SULFATE 0.1 MG/ML 10ML SYRINGE IV PRN (12:33)
[2020-01-05] MEDS ORDERED: NITROGLYCERIN SL TABS 0.4 MG TAB SUBLINGUAL PRN (12:33)
[2020-01-05] MEDS ORDERED: SODIUM CHLORIDE 0.9% 1,000 ML IV SCH (12:45)
--- NOTE | 2020-01-05 13:23 | P.CARDCATH ---
Date of Procedure: 01/05/20 Preoperative Diagnosis: Unstable angina and positive stress test Postoperative Diagnosis: Patent stents in the OM branches. Intermittent to critical disease involving the mid and distal LAD Procedure(s) Performed: Left heart catheterization without left ventriculography Description of Procedure: HISTORY: This is a 79-year-old gentleman with history of multiple risk factors who recently underwent cardiac catheterization and stent placement of the 2 OM branches. Patient is now admitted to the hospital with complaints of recurrent chest pains. Patient had a nuclear stress test which was suggestive of ischemia involving the inferior wall. Patient is advised to have cardiac catheterization for definitive diagnosis. CONSENT:I have discussed the risks, benefits and alternative therapies for the above-mentioned procedure and for both sedation/analgesia as well as necessary blood product administration, if indicated, as they pertain to this patient. The patient has indicated understanding and acceptance of the risks and procedures discussed. PROCEDURE: Patient was brought to the lab in a fasting state. Patient was given some IV sedation. The right wrist is infiltrated with lidocaine and right radial artery was entered using Seldinger technique. A 6-Malaysian catheter was left in place and selective coronary arteriography was performed. Patient tolerated the procedure well. Patient was found to have and admitted to critical lesion involving the mid and distal LAD. Patient is going to have FFR done by Dr. Short and if necessary stenting of the LAD. Conscious Sedation: Versed 1mg Fentanyl 25 g Duration 20minutes HEMODYNAMICS: The aortic pressure is about 130/70 SELECTIVE CORONARY ARTERIOGRAPHY: LEFT MAIN: This is of normal length and PFO significant occlusive disease THE LEFT ANTERIOR DESCENDING CORONARY ARTERY:. This is a good caliber vessel with diffuse mild plaque. There is 80 of 60-70% lesion in mid LAD, followed by another 50-70% lesion in the distal portion. THE LEFT CIRCUMFLEX AND IS CORONARY ARTERY: The 2 OM branches have patent stents with mild diffuse disease. Distal circumflex is small THE RIGHT CORONARY ARTERY:. This is a dominant vessel with a diffuse plaque without any critical lesions LEFT VENTRICULOGRAPHY: Not performed FINAL IMPRESSION:. Patient admitted to critical lesion involving mid and distal LAD. Patent stents in the 2 OM branches PLAN:. FFR of the LAD and if necessary stent placement of the mid and distal LAD PROGNOSIS: Fair
--- NOTE | 2020-01-05 13:36 | P.PN ---
Subjective Progress Note Date: 01/05/20 Nick Ndiaye is a 79-year-old male patient of Dr. Covarrubias who presented to [facility] emergency room with a chief complaint of chest pain, patient states that he was at a basketball game sitting quietly when he started having headache in the back of his head subsequently he had some neck pain and pain in the upper chest area, patient had his drive him to emergency room he was evaluated in the emergency room and was admitted to the observation unit for further treatment, EKG in the emergency room revealed normal sinus rhythm without any acute abnormality, troponin level were normal. Patient has a known history of coronary artery disease, he had cardiac catheterization and angioplasty with stent placement in 2004 after an abnormal stress test, he also had abnormal stress test in September 2019 at that time he had angioplasty and 2 stent placement he is followed as outpatient by Dr. Diop. On evaluation in the emergency room patient had elevated liver enzymes including AST , ALT and alkaline phosphatase ultrasound of the abdomen was done and revealed mild fatty infiltration of the liver the gallbladder was surgically absent there was no evidence of stone or dilatation in the common bile duct patient has evidence of right sided kidney stone. On 01/03/2020 patient was seen and examined on the medical floor he is alert and oriented 3 in no apparent distress, there is no fever or chills no headache or dizziness no chest pain no shortness of breath no cough no nausea or vomiting no abdominal pain no diarrhea no burning with urination no frequency or urgency and no hematuria. Case was discussed with Dr. Short job setter, plan is for stress test in a.m. tomorrow On 01/04/2020 patient is alert and oriented 3. Patient did undergo stress test. Per nursing staff patient did have a positive stress test. Likely patient will undergo cardiac cath tomorrow per cardiology. Attempting patient denies chest pain or shortness breath. Patient denies nausea vomiting or diarrhea. Patient denies any urinary burning or frequency On 01/05/2020 patient alert and oriented 3. Patient to undergo cardiac cath today. Patient denies chest pain or shortness of breath. Patient denies nausea vomiting or diarrhea. Patient denies any urinary burning or frequency Per nursing staff patient did receive stents to the OM per cardiology. Objective - Vital Signs Vital signs: Vital Signs Temp 97.8 F 01/05/20 07:10 Pulse 57 L 01/05/20 07:10 Resp 18 01/05/20 07:10 BP 106/65 01/05/20 07:10 Pulse Ox 95 01/05/20 07:10 Intake & Output 01/04/20 01/05/20 01/05/20 18:59 06:59 18:59 Intake Total 300 700 222 Balance 300 700 222 Weight 86.4 kg Intake: IV 222 Intake, IV Titration 700 Amount Sodium Chloride 0.9% 1, 700 000 ml In Empty Bag 1 bag @ 1 ML/KG/HR 86.4 mls/hr IV .[id number] ONE Rx#: [id number] Oral 300 Other: Voiding Method Toilet Toilet Toilet # Voids 1 - Exam In general patient is alert and oriented 3 in no apparent distress HEENT head normocephalic and atraumatic Neck is supple no JVD no goiter no lymphadenopathy no carotid bruit Chest exam reveals a few scattered rhonchi no wheezing Cardiac exam reveals regular heart sounds S1 and S2 no gallops no murmurs Abdomen is soft nontender no organomegaly with normal bowel sounds Extremity exam reveals no edema no cyanosis or clubbing Neurological examination reveals no gross focal deficit - Labs CBC & Chem 7: 01/05/20 06:56 01/05/20 06:56 Labs: Abnormal Lab Results - Last 24 Hours (Table) 01/04/20 01/04/20 01/05/20 Range/Units 16:44 20:21 06:36 RBC (4.30-5.90) m/uL Hgb (13.0-17.5) gm/dL Hct (39.0-53.0) % Plt Count (150-450) k/uL Chloride (98-107) mmol/L Glucose (74-99) mg/dL POC Glucose (mg/dL) 174 H 196 H 170 H (75-99) mg/dL Total Bilirubin (0.2-1.3) mg/dL AST (17-59) U/L ALT (4-49) U/L Total Protein (6.3-8.2) g/dL Albumin (3.5-5.0) g/dL 01/05/20 01/05/20 Range/Units 06:56 06:56 RBC 3.79 L (4.30-5.90) m/uL Hgb 12.3 L (13.0-17.5) gm/dL Hct 37.0 L (39.0-53.0) % Plt Count 139 L (150-450) k/uL Chloride 109 H (98-107) mmol/L Glucose 159 H (74-99) mg/dL POC Glucose (mg/dL) (75-99) mg/dL Total Bilirubin 1.5 H (0.2-1.3) mg/dL AST 114 H (17-59) U/L ALT 95 H (4-49) U/L Total Protein 5.9 L (6.3-8.2) g/dL Albumin 3.2 L (3.5-5.0) g/dL Assessment and Plan Assessment: #1 episode of chest pain, myocardial infarction ruled out patient had 3 sets of cardiac enzymes that are negative. Chest pain not typical for angina however due to patient's history of coronary artery disease with history of 3 stent placement in the past. Patient did have positive stress test. Patient underwent cardiac catheterization today per cardiology did receive stents to the OM. #2 elevated liver enzymes, cause is unclear, could be related to fatty infiltration of the liver, patient could have passed a small common bile duct stone, however no evidence on ultrasound of any stone or common bile duct dilate d Tatian/. Liver enzymes are trending down #3 elevated glucose level. Patient has a known history of borderline diabetes, he is not maintained on any medications for that will check hemoglobin A1c. A1c 9.2. Patient will be discharged home on metformin and glipizide currently on hold due to possible cardiac cath tomorrow #4 underlying history of hypothyroidism maintained on [place] Thyroid with check TSH. TSH level I.100 #5 underlying history of hyperlipidemia maintained on Lipitor continue #6 recent history of 2 stent placement in September 2019 maintained on Effient continue #7 underlying history of BPH maintained on Flomax and Uroxatral #8 underlying history of kidney stones without evidence of obstruction at this time.
--- NOTE | 2020-01-05 14:46 | PTCA ---
PERCUTANEOUSTRANS CORORONARY ANGIOGRAPHY DATE OF SERVICE: January 05, 2020 PERFORMING PHYSICIAN: Bogdan Carey MD. PROCEDURE PERFORMED: 1. Fractional flow reserve FFR of the LAD. 2. Successful stenting of the mid LAD using 2.25 x 12 and 3.0 x 12 mm Xience SHERI with an excellent angiographic results and reduction of stenosis from 70% to 0%. INDICATION: This is a 79-year-old gentleman who sees Dr. Diop in the office as an outpatient with history of coronary artery disease and prior stenting of the left circumflex, who presented to the hospital with chest discomfort. He was ruled out for acute coronary event. He underwent myocardial perfusion imaging stress test and that revealed reversible defect and because of that, a heart catheterization was advised. The patient underwent heart catheterization by Dr. Diop and was found to have intermediate to severe lesions involving the mid LAD. Fractional flow reserve was advised. APPROACH: Right radial artery. COMPLICATION: None. LEVEL OF SEDATION: Moderate with sedation length of 21 minutes. PROCEDURE DESCRIPTION: Please refer to diagnostic heart catheterization was performed by Dr. Diop earlier today. Anticoagulation was achieved using heparin and ACT monitoring was done throughout the procedure. After zeroing the Doppler wire and equalizing between the Doppler wire and the guiding catheter, I did FFR per IV adenosine infusion and that came in to be at 0.77. At that point, I did direct stenting of both lesions. The distal mid LAD lesion was stented directly using 2.25 x 12 mm Xience SHERI which was positioned and deployed under fluoroscopy guidance under 14 atmospheres for 20 seconds. The proximal mid LAD lesion was also directly stented using 3.0 x 12 mm another Xience SHERI where the stent was positioned and deployed under fluoroscopy guidance under 16 atmospheres for 20 seconds. The following angiogram showed excellent angiographic results and the procedure was completed without any complication. POSTPROCEDURE MANAGEMENT: 1. Dual anti-platelet therapy. 2. Risk factors modifications. 3. Follow up with the patient. MMODL / IJN: [id number] /
[2020-01-05 16:39] LABS: Glucose,Whole Blood 184 mg/dL (75-99)
[2020-01-05] MEDS: INSULIN ASPART (NovoLOG) 100 UNIT/ML VIAL SQ SCH ×4 (17:40→20:27)
[2020-01-05] MEDS: SODIUM CHLORIDE 0.9% 1,000 ML IV SCH ×2 (17:40→18:11)
[2020-01-05] MEDS: ATORVASTATIN 80 MG TAB PO SCH (19:57)
[2020-01-05] MEDS: TAMSULOSIN 0.4 MG CAP.ER.24H PO SCH (19:57)
[2020-01-05] MEDS: MELATONIN 5 MG TABLET PO SCH (19:57)
[2020-01-05 20:21] LABS: Glucose,Whole Blood 201 mg/dL (75-99)
[2020-01-06 05:35] VITALS: RESP 18
[2020-01-06] MEDS: SODIUM CHLORIDE 0.9% 1,000 ML IV SCH (05:35)
[2020-01-06 06:23] LABS: Glucose,Whole Blood 181 mg/dL (75-99)
[2020-01-06] MEDS: INSULIN ASPART (NovoLOG) 100 UNIT/ML VIAL SQ SCH ×2 (06:30→12:56)
[2020-01-06 07:09] LABS: Basophils % (A) 1 %; Eosinophils # (A) 0.3 k/uL (0-0.7); Eosinophils % (A) 5 %; HCT 37.5 % (39.0-53.0); HGB 12.5 gm/dL (13.0-17.5); Lymphocytes # (A) 0.9 k/uL (1.0-4.8); Lymphocytes % (A) 17 %; MCH 32.8 pg (25.0-35.0); MCHC 33.3 g/dL (31.0-37.0); MCV 98.6 fL (80.0-100.0); Monocytes # (A) 0.3 k/uL (0-1.0); Monocytes % (A) 6 %; Neutrophils # (A) 3.6 k/uL (1.3-7.7); Neutrophils % (A) 69 %; Platelet Count 155 k/uL (150-450); RDW 12.4 % (11.5-15.5); WBC 5.2 k/uL (3.8-10.6)
[2020-01-06 07:21] LABS: Albumin 3.5 g/dL (3.5-5.0); Calcium 9.1 mg/dL (8.4-10.2); Potassium 4.2 mmol/L (3.5-5.1); Total Bilirubin 1.5 mg/dL (0.2-1.3); Total Protein 6.2 g/dL (6.3-8.2)
[2020-01-06] MEDS: PRASUGREL 10 MG TAB PO SCH (09:50)
[2020-01-06] MEDS: ASPIRIN 81 MG PO SCH (09:50)
[2020-01-06] MEDS: LATANOPROST 0.005% OPHTH DROPS 2.5 ML BTL BOTH EYES SCH (09:51)
--- NOTE | 2020-01-06 11:58 | P.DS ---
Providers Date of admission: 01/03/20 13:18 Expected date of discharge: 01/06/20 Attending physician: Obdulia Cm Consults: 01/02/20 00:21 Consult Physician Urgent Consulting Provider: Naman Newman Consult Reason/Comments: cp Do you want consulting provider notified?: Yes 01/05/20 12:33 Consult Physician Routine Consulting Provider: [facility] Consult Reason/Comments: Post Interventional patient Do you want consulting provider notified?: Already Contacted Primary care physician: Sissy Covarrubias Hospital Course: Discharge diagnosis #1 episode of chest pain, myocardial infarction ruled out patient had 3 sets of cardiac enzymes that are negative. Chest pain not typical for angina however due to patient's history of coronary artery disease with history of 3 stent placement in the past. Patient did have positive stress test. Patient underwent cardiac catheterization today per cardiology did receive stents to the OM. Does post cardiac cath with 2 stents to the OM. Patient has been cleared for discharge from cardiology standpoint will resume anticoagulation Effient #2 elevated liver enzymes, cause is unclear, could be related to fatty infiltration of the liver, patient could have passed a small common bile duct stone, however no evidence on ultrasound of any stone or common bile duct dilated Tatian/. Liver enzymes are trending down #3 diabetes mellitus type 2. Patient has a known history of borderline diabetes, he is not maintained on any medications for that will check hemoglobin A1c. A1c 9.2. Patient will be discharged home on metformin and glipizide currently on hold due to possible cardiac cath tomorrow #4 underlying history of hypothyroidism maintained on [place] Thyroid with check TSH. TSH level I.100 #5 underlying history of hyperlipidemia maintained on Lipitor continue #6 recent history of 2 stent placement in September 2019 maintained on Effient continue #7 underlying history of BPH maintained on Flomax and Uroxatral #8 underlying history of kidney stones without evidence of obstruction at this time. #9. Elevated liver enzymes. Per cardiology patient maintained on Lipitor 80 mg at night. Recheck of liver enzymes to be ordered for 2 days and to be monitored closely by PCP. Hospital course Nick Ndiaye is a 79-year-old male patient of Dr. Covarrubias who presented to [facility] emergency room with a chief complaint of chest pain, patient states that he was at a basketball game sitting quietly when he started having headache in the back of his head subsequently he had some neck pain and pain in the upper chest area, patient had his drive him to emergency room he was evaluated in the emergency room and was admitted to the observation unit for further treatment, EKG in the emergency room revealed normal sinus rhythm without any acute abnormality, troponin level were normal. Patient has a known history of coronary artery disease, he had cardiac catheterization and angioplasty with stent placement in 2004 after an abnormal stress test, he also had abnormal stress test in September 2019 at that time he had angioplasty and 2 stent placement he is followed as outpatient by Dr. Diop. On evaluation in the emergency room patient had elevated liver enzymes including AST , ALT and alkaline phosphatase ultrasound of the abdomen was done and revealed mild fatty infiltration of the liver the gallbladder was surgically absent there was no evidence of stone or dilatation in the common bile duct patient has evidence of right sided kidney stone. On 01/03/2020 patient was seen and examined on the medical floor he is alert and oriented 3 in no apparent distress, there is no fever or chills no headache or dizziness no chest pain no shortness of breath no cough no nausea or vomiting no abdominal pain no diarrhea no burning with urination no frequency or urgency and no hematuria. Case was discussed with Dr. Short spring upholsterer, plan is for stress test in a.m. tomorrow On 01/04/2020 patient is alert and oriented 3. Patient did undergo stress test. Per nursing staff patient did have a positive stress test. Likely patient will undergo cardiac cath tomorrow per cardiology. Attempting patient denies chest pain or shortness breath. Patient denies nausea vomiting or diarrhea. Patient denies any urinary burning or frequency On 01/05/2020 patient alert and oriented 3. Patient to undergo cardiac cath today. Patient denies chest pain or shortness of breath. Patient denies nausea vomiting or diarrhea. Patient denies any urinary burning or frequency On 01/06/2020 patient is alert and oriented 3. Patient status post cardiac cath with 2 stents to the OM. Patient has been cleared for discharge from cardiology standpoint will resume on Effient. Patient's liver enzymes also slightly elevated total bili 1.5, AST 149 ALT 112. Per cardiology would like to maintain patient on Lipitor 80 mg and monitor liver enzymes outpatient. Repeat CMP has been ordered for 2 days will need close monitoring per PCP and cardiology services. A1c also elevated during hospitalization 9.2. Patient will be started on glipizide and metformin. Further management per PCP. At that time patient denies chest pain or shortness of breath. Patient denies nausea vomiting or diarrhea. Patient denies any urinary burning or frequency I performed an examination of the patient and discussed their management with the Nurse Practitioner. I have reviewed the Nurse Practitioner's notes and agree with the documented findings and plan of care Patient Condition at Discharge: Good Plan - Discharge Summary Discharge Rx Participant: Yes New Discharge Prescriptions: New metFORMIN HCL 500 mg PO BID 30 Days #60 tablet Continue Calcium Carb/Magnesium Ox,Carb [James-Mag 500-250 MG Chewable] 2 tab PO HS Thyroid,Pork [[place] Thyroid] 60 mg PO DAILY Alfuzosin HCl [Uroxatral ER] 10 mg PO HS Zynergy 1 tab PO DAILY Somnapur 1 tab PO HS Prasterone (Dhea) [Dhea] 50 mg PO DAILY Melatonin 5 mg PO HS Cbd Oil 3 drops SUBLINGUAL BID Aspirin 81 mg PO DAILY chew Tamsulosin [Flomax] 0.4 mg PO HS #30 cap.er.24h Atorvastatin [Lipitor] 80 mg PO HS #30 tab Latanoprost [Xalatan 0.005%] 1 drop BOTH EYES HS Prasugrel [Effient] 10 mg PO HS Chloroxygen 1 tab PO DAILY Nitroglycerin Sl Tabs [Nitrostat] 0.4 mg SUBLINGUAL Q5M PRN #20 tab PRN Reason: Chest Pain Discharge Medication List Alfuzosin HCl [Uroxatral ER] 10 mg PO HS 09/28/19 [History] Calcium Carb/Magnesium Ox,Carb [James-Mag 500-250 MG Chewable] 2 tab PO HS 09/28/19 [History] Cbd Oil 3 drops SUBLINGUAL BID 09/28/19 [History] Melatonin 5 mg PO HS 09/28/19 [History] Prasterone (Dhea) [Dhea] 50 mg PO DAILY 09/28/19 [History] Somnapur 1 tab PO HS 09/28/19 [History] Thyroid,Pork [[place] Thyroid] 60 mg PO DAILY 09/28/19 [History] Zynergy 1 tab PO DAILY 09/28/19 [History] Aspirin 81 mg PO DAILY chew 10/02/19 [Rx] Atorvastatin [Lipitor] 80 mg PO HS #30 tab 10/02/19 [Rx] Tamsulosin [Flomax] 0.4 mg PO HS #30 cap.er.24h 10/02/19 [Rx] Chloroxygen 1 tab PO DAILY 01/02/20 [History] Latanoprost [Xalatan 0.005%] 1 drop BOTH EYES HS 01/02/20 [History] Prasugrel [Effient] 10 mg PO HS 01/02/20 [History] Nitroglycerin Sl Tabs [Nitrostat] 0.4 mg SUBLINGUAL Q5M PRN #20 tab 01/06/20 [Rx] metFORMIN HCL 500 mg PO BID 30 Days #60 tablet 01/06/20 [Rx] Follow up Appointment(s)/Referral(s): Rehab Nicole LAURENT,Cardiac [NON-STAFF] - 1 Week (After discharge, you will follow- up with your spring upholsterer. Once you have obtained a prescription for cardiac rehab, please call [phone] to set up an evaluation.) Luann Vallecillo NPC [Nurse Practitioner] - 01/12/20 1:30 pm (Saturday) Uriel Diop MD [STAFF PHYSICIAN] - 01/14/20 2:15 pm () Ambulatory/Diagnostic Orders: Comprehensive Metabolic Panel [LAB.AMB] Time Frame: 2 Days, Location: None Selected Patient Instructions/Handouts: *Surgery [facility] - After Heart Catheterization - Public Health Aide Instructions, Heart Healthy Diet (DC), Cardiac Rehabilitation (GEN), After Radial Heart Catheterization (GEN) Activity/Diet/Wound Care/Special Instructions: Activity as tolerated Diet heart healthy Patient stated start metformin on 01/09/2020 Discharge Disposition: HOME SELF-CARE
[2020-01-06 12:00] LABS: Glucose,Whole Blood 231 mg/dL (75-99)
[2020-01-06 14:27] VITALS: BP 112/66; PULSE 58; TEMP 97.9
== END 2020-01-06 14:24 | disposition home or self-care (01) | DRG 247 ==
LOC: EC 22:25 → 1SOBS 01-02 00:21 → OBSVTOIN 01-03 13:18 → 3SCARD 01-05 16:36
PROVIDERS: ADMIT Internal Medicine; ATTEND Internal Medicine
PROC: 027035Z Dilation of Coronary Artery, One Artery with Two Drug-eluting Intraluminal Devices, Percutaneous Approach (ICD-10-PCS; principal; 2020-01-05 11:30)
PROC: 4A033BC Measurement of Arterial Pressure, Coronary, Percutaneous Approach (ICD-10-PCS; principal; 2020-01-05 11:30)
PROC: 4A023N7 Measurement of Cardiac Sampling and Pressure, Left Heart, Percutaneous Approach (ICD-10-PCS; 2020-01-05 11:30)
DX: I25.10 Atherosclerotic heart disease of native coronary artery without angina pectoris (principal); Q21.1 Atrial septal defect; N40.0 Benign prostatic hyperplasia without lower urinary tract symptoms; E03.9 Hypothyroidism, unspecified; E78.5 Hyperlipidemia, unspecified; D69.6 Thrombocytopenia, unspecified; I10 Essential (primary) hypertension; R94.5 Abnormal results of liver function studies; E11.65 Type 2 diabetes mellitus with hyperglycemia; Z82.49 Family history of ischemic heart disease and other diseases of the circulatory system; Z82.3 Family history of stroke; Z79.82 Long term (current) use of aspirin; Z79.02 Long term (current) use of antithrombotics/antiplatelets; Z79.899 Other long term (current) drug therapy; I25.2 Old myocardial infarction; Z87.442 Personal history of urinary calculi; Z85.54 Personal history of malignant neoplasm of ureter; Z90.49 Acquired absence of other specified parts of digestive tract; Z95.5 Presence of coronary angioplasty implant and graft
CPT/HCPCS: 36415; 71046; 76705; 78452; 80053; 80061; 83036; 83690; 83735; 83880; 84443; 84484; 85025; 85347; 85610; 85730; 93005; 93017; 93454; 93571; 99285

== ENCOUNTER → 2020-02-01 | Outpatient (CLI) | payer MEDICARE, OTHER ==
--- NOTE | 2020-02-01 08:44 | US ---
EXAMINATION TYPE: US abdomen limited DATE OF EXAM: 02/01/2020 COMPARISON: 01/02/2020 CLINICAL HISTORY: 79-year-old male R94.5 Elevated LFT's. Cholecystectomy TECHNIQUE: Multiple sonographic images of the right upper quadrant are obtained. FINDINGS: EXAM MEASUREMENTS: Liver Length: 14.2 cm Gallbladder: Surgically absent CBD: 0.9 cm Right Kidney: 10.8 x 5.5 x 6.0 cm Pancreas: limited views. Small portion of the visualized pancreatic body shows no gross anomaly. Liver: Limited intercostal views. Increased echogenicity. No focal lesion seen. Gallbladder: Surgically absent Evidence for sonographic Mejía's sign: no CBD: large caliber wnl for post cholecystectomy and age Right Kidney: No hydronephrosis. 1.5 cm shadowing calculus at the lower pole. IMPRESSION: 1. Intercostal views of the liver show echogenic appearance suggesting fatty infiltration. Correlate with LFTs, lipid profile, and patient risk factors. 2. Mildly dilated bile duct at 9 mm, acceptable given postcholecystectomy status. 3. A 1.5 cm shadowing calculus at the lower pole right kidney.
== END | disposition home or self-care (01) ==
LOC: RADUSWWP 08:01
PROVIDERS: ATTEND Family Medicine
DX: R93.2 Abnormal findings on diagnostic imaging of liver and biliary tract (principal); N20.0 Calculus of kidney; R94.5 Abnormal results of liver function studies; Z90.49 Acquired absence of other specified parts of digestive tract
CPT/HCPCS: 76705

== ENCOUNTER → 2020-09-14 | Outpatient (CLI) | payer MEDICARE, OTHER ==
--- NOTE | 2020-09-14 14:45 | XR ---
EXAMINATION TYPE: XR Hip RT and AP Pelvis DATE OF EXAM: 09/14/2020 COMPARISON: NONE HISTORY: Pain in right hip TECHNIQUE: A single AP view of the pelvis is obtained. Two views of the right hip are obtained. FINDINGS: There is no acute fracture/dislocation evident in the pelvis. The hip and sacroiliac join ts appear symmetric and unremarkable. The overlying soft tissue appears unremarkable. There is some remodeling at the normal heads. Degenerative disc changes are noted in the lower lumbar spine. Probable vascular calcifications are present within the pelvis. Two views of right hip show no acute fracture or dislocation. No focal lytic or sclerotic lesion see n in the proximal right femur. The overlying soft tissue is unremarkable. IMPRESSION: There is no acute fracture or dislocation in the pelvis or right hip. Mild osteoarthriti c changes are present. Degenerative disc disease in the lumbar spine.
== END | disposition home or self-care (01) ==
LOC: RADXRMAIN 13:14
PROVIDERS: ATTEND Family Medicine
DX: M51.36 Other intervertebral disc degeneration, lumbar region (principal); M16.11 Unilateral primary osteoarthritis, right hip
CPT/HCPCS: 73502

== ENCOUNTER → 2020-10-18 | Outpatient (CLI) | payer MEDICARE, OTHER ==
--- NOTE | 2020-10-18 15:37 | CT ---
EXAMINATION TYPE: CT lumbar spine wo con DATE OF EXAM: 10/18/2020 2:53 PM COMPARISON: None. HISTORY: Spondylosis without myelopathy, spondylolysis, and spinal stenosis with claudication all per tinent order. CT DLP: 962 mGycm Automated exposure control for dose reduction was used. Unenhanced CT of the lumbar spine was performed. Bone and soft tissue window settings are submitted as well as coronal and sagittal reconstructions. There are 5 lumbar-type vertebra. There are bilateral pars defect with grade 1 anterolisthesis L5 on S1 measured 6 to 7 mm posterior vertebral body margin sagittal image 24. Vertebral body heights and d isc space heights are maintained. Mild multilevel anterior and lateral spurring. Axial images show mild broad disc bulges mildly effacing the anterior thecal sac at L1-L2 with [address] degree at L2-L3 levels on image 33. Mild facet arthropathy right greater than left L2-L3 level is seen. Axial images at L4-L5 level show mild/moderate broad disc bulge mildly effacing the anterior thecal s ac with mild/moderate facet degenerative changes bilaterally. Patent bilateral neural foramina noted. There are bilateral renal calculi including from 12 15 mm calculus left renal pelvis coronal image 11 and similar staghorn type calculus lower pole calyx right kidney coronal image 12. IMPRESSION: Bilateral pars defect L5 level with spondylolisthesis. Multilevel degenerative changes gr eatest at L2-L3 and L4-L5 levels. Bilateral fairly large renal calculi noted.
== END | disposition home or self-care (01) ==
LOC: RADCTMAIN 14:36
PROVIDERS: ATTEND Physical Medicine & Rehabilitation
DX: M43.16 Spondylolisthesis, lumbar region (principal); M47.816 Spondylosis without myelopathy or radiculopathy, lumbar region; E11.9 Type 2 diabetes mellitus without complications
CPT/HCPCS: 72131

== ENCOUNTER → 2021-03-10 | Outpatient (CLI) | payer MEDICARE, OTHER ==
--- NOTE | 2021-03-10 12:35 | XR ---
KUB HISTORY: Bilateral kidney stones KUB and 2 images Correlated prior exam November 16, 2019 Calcification at the lower pole the right kidney is stable. There are again noted multiple calcificat ions over the mid and left lower kidney. Calcification of the right measures 14 mm in greatest dimens ion, calcifications on the left wrist a volar near stable, there are at least 4 calcifications measur ing from approximately 7 mm to 13 mm. There are calcifications present within the pelvis, possible di stal left ureteral calculus is noted measuring 7 mm. IMPRESSION: Suspect interval migration of calculus to the level of the distal left ureter
== END | disposition home or self-care (01) ==
LOC: RADXRMAIN 11:59
PROVIDERS: ATTEND Urology
DX: N20.0 Calculus of kidney (principal)
CPT/HCPCS: 74018

== ENCOUNTER → 2021-03-24 | Outpatient (CLI) | payer MEDICARE, OTHER ==
--- NOTE | 2021-03-24 11:33 | CT ---
EXAMINATION TYPE: CT abdomen pelvis wo con DATE OF EXAM: 03/24/2021 COMPARISON: None HISTORY: History of renal stones, calculus of kidneys CT DLP: 548.6 mGycm Automated exposure control for dose reduction was used. TECHNIQUE: Helical acquisition of images was performed from the lung bases through the pelvis. FINDINGS: There are mild chronic interstitial changes with bronchiectasis in the lung bases. There are surgical absence of the gallbladder. There is no organomegaly involving the liver pancreas spleen or adrenal glands. There are multiple nonobstructing calcifications of the kidneys bilaterally the largest on the right is 12.8 mm and the largest on the left is 12.4 mm. There is 1/2 calcifications in the right kidney an d at least 7-8 calcifications in the left kidney. There are no ureteral or urinary bladder calcificat ions. The bowel loops are normal in caliber and there is no evidence of obstruction. There is no free intra peritoneal air or fluid. There are no inflammatory changes within the mesentery. There is no pelvic abscess, free fluid, adenopathy or mass there is a small right inguinal hernia con taining bowel loop but no evidence of bowel ischemia, obstruction or strangulation. The osseous structures are intact. IMPRESSION: Multiple nonobstructing renal calcifications bilaterally as described above. 2. Small right inguinal hernia containing bowel loop as described above. 3. No evidence of bowel obstruction, inflammation or free intraperitoneal air or fluid. 4. Chronic changes in the lung bases as described above.
== END | disposition home or self-care (01) ==
LOC: RADCTMAIN 10:46
PROVIDERS: ATTEND Urology
DX: N28.89 Other specified disorders of kidney and ureter (principal); K40.90 Unilateral inguinal hernia, without obstruction or gangrene, not specified as recurrent
CPT/HCPCS: 74176

== ENCOUNTER → 2021-05-22 | Outpatient (CLI) | payer MEDICARE, OTHER ==
--- NOTE | 2021-05-22 12:55 | XR ---
EXAMINATION TYPE: XR chest 2V DATE OF EXAM: 05/22/2021 COMPARISON: 01/01/2020 HISTORY: Shortness of breath TECHNIQUE: Frontal and lateral views of the chest are obtained. FINDINGS: Scattered senescent parenchymal changes noted. Hyperinflation compatible with COPD. No evidence for infiltrate. No evidence for atelectasis. Heart size is stable. Mediastinal structures are stable and grossly unremarkable. No evidence for hilar prominence. Degenerative changes dorsal spine. IMPRESSION: 1. No evidence for acute pulmonary disease.
== END | disposition home or self-care (01) ==
LOC: RADXRMAIN 12:14
PROVIDERS: ATTEND Nurse Practitioner Family
DX: R06.02 Shortness of breath (principal)
CPT/HCPCS: 71046

== ENCOUNTER 2021-07-18 18:08 | Emergency (ER) | payer MEDICARE, OTHER ==
[2021-07-18 18:27] VITALS: BP 126/74; PULSE 74; RESP 18; TEMP 98.3
[2021-07-18] MEDS ORDERED: DIPH,PERTUS(ACELL)TETVAC-LF 0.5 ML VIAL IM ONE (19:10)
--- NOTE | 2021-07-18 19:39 | ED ---
Head Injury HPI - General Chief complaint: Head Injury Stated complaint: head lac Time Seen by Provider: 07/18/21 19:00 Source: patient, family, RN notes reviewed Mode of arrival: ambulatory Limitations: no limitations - History of Present Illness Initial comments: This a 80-year-old male presents emergency apartment with chief complaint of a head injury. Patient states earlier this afternoon he tripped falling into a tree. Patient has a laceration on his scalp. He is unsure when his last tetanus was. Patient states he has no headache dizziness no blurred vision no focal weakness or neck pain. Patient does take 81 mg aspirin no other blood thinners. Patient denies other complaints. - Related Data Home Medications Medication Instructions Recorded Confirmed Alfuzosin HCl [Uroxatral ER] 10 mg PO HS 09/28/19 01/26/20 Calcium Carb/Magnesium Ox,Carb 2 tab PO HS 09/28/19 01/26/20 [James-Mag 500-250 MG Chewable] Cbd Oil 3 drops SUBLINGUAL BID 09/28/19 01/26/20 Melatonin 5 mg PO HS 09/28/19 01/26/20 Prasterone (Dhea) [Dhea] 50 mg PO DAILY 09/28/19 01/26/20 Somnapur 1 tab PO HS 09/28/19 01/26/20 Thyroid,Pork [[place] Thyroid] 60 mg PO DAILY 09/28/19 01/26/20 Zynergy 1 tab PO DAILY 09/28/19 01/26/20 Chloroxygen 1 tab PO DAILY 01/02/20 01/26/20 Latanoprost [Xalatan 0.005%] 1 drop BOTH EYES HS 01/02/20 01/26/20 Prasugrel [Effient] 10 mg PO HS 01/02/20 01/26/20 Previous Rx's Medication Instructions Recorded Aspirin 81 mg PO DAILY chew 10/02/19 Atorvastatin [Lipitor] 80 mg PO HS #30 tab 10/02/19 Tamsulosin [Flomax] 0.4 mg PO HS #30 cap.er.24h 10/02/19 Nitroglycerin Sl Tabs [Nitrostat] 0.4 mg SUBLINGUAL Q5M PRN #20 tab 01/06/20 glipiZIDE [Glucotrol] 5 mg PO DAILY 30 Days #30 tab 01/06/20 metFORMIN HCL 500 mg PO BID 30 Days #60 tablet 01/06/20 Amoxicillin/Potassium Clav 1 tab PO Q12HR #14 tab 07/18/21 [Augmentin 875-125 Tablet] Allergies/Adverse reactions: Allergies Allergy/AdvReac Type Severity Reaction Status Date / Time No Known Allergies Allergy Verified 07/18/21 18:27 Review of Systems ROS Statement: Those systems with pertinent positive or pertinent negative responses have been documented in the HPI. ROS Other: All systems not noted in ROS Statement are negative. 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 REPAIR FX JAW. KIDNEY STONE -LITHOTRIPSY. URETERAL STENTS WITH LATER REMOVAL Past Anesthesia/Blood Transfusion Reactions: No Reported Reaction Date of Last Stent Placement:: 2018 Past Psychological History: No Psychological Hx Reported Past Alcohol Use History: None Reported Past Drug Use History: None Reported - Past Family History Brother(s) Family Medical History: Deep Vein Thrombosis (DVT) Mother Family Medical History: CVA/TIA General Exam Limitations: no limitations General appearance: alert, in no apparent distress Head exam: Present: atraumatic, normocephalic. Absent: normal inspection (3 cm laceration right parietal region foreign bodies are noted no active bleeding, superficial) Eye exam: Present: normal appearance, PERRL, EOMI. Absent: scleral icterus, c onjunctival injection, periorbital swelling ENT exam: Present: normal exam, mucous membranes moist Neck exam: Present: normal inspection, full ROM. Absent: tenderness, meningismus, lymphadenopathy Respiratory exam: Present: normal lung sounds bilaterally. Absent: respiratory distress, wheezes, rales, rhonchi, stridor Cardiovascular Exam: Present: regular rate, normal rhythm, normal heart sounds. Absent: systolic murmur, diastolic murmur, rubs, gallop, clicks Neurological exam: Present: alert, oriented X3, CN II-XII intact, reflexes normal. Absent: motor sensory deficit Course Vital Signs 07/18/21 18:22 Temperature 98.3 F Pulse Rate 74 Respiratory 18 Rate Blood Pressure 126/74 O2 Sat by Pulse 97 Oximetry Procedures - Procedures Initial comment: Scalp laceration was thoroughly cleaned, irrigated, foreign body was removed. Patient did have Steri-Strips placed Medical Decision Making - Medical Decision Making CT is unremarkable. Patient has evidence of scalp laceration which was cleaned patient didn't foreign body removed patient's tetanus is updated patient discharge on oral antibiotics return parameters were discussed. Disposition Clinical Impression: Scalp laceration Disposition: HOME SELF-CARE Condition: Stable Instructions (If sedation given, give patient instructions): Laceration (ED) Additional Instructions: Please return to the Emergency Department if symptoms worsen or any other concerns. Prescriptions: Amoxicillin/Potassium Clav [Augmentin 875-125 Tablet] 1 tab PO Q12HR #14 tab Is patient prescribed a controlled substance at d/c from ED?: No Referrals: Sissy Covarrubias MD [Primary Care Provider] - 1-2 days Time of Disposition: 20:39
--- NOTE | 2021-07-18 20:28 | CT ---
EXAMINATION TYPE: CT brain nevaehine wo con DATE OF EXAM: 07/18/2021 COMPARISON: None available. HISTORY: Fall, head laceration. CT DLP: 1581.3 mGycm Automated exposure control for dose reduction was used. TECHNIQUE: CT scan of the head and cervical spine are performed without contrast. FINDINGS: There is no acute intracranial hemorrhage, mass effect, or midline shift identified. The ventricles and sulci are within normal limits in size. There is mild parenchymal volume loss. The wh ite matter is grossly preserved. The globes are intact and the visualized sinuses are clear. Cervical spine is visualized in its entirety from C1 through upper thoracic levels and demonstrates s atisfactory alignment without evidence of acute fracture or dislocation. There is mild cervical spond ylosis. Prevertebral soft tissue appears within normal limits. The C1-C2 articulation is unremarkabl e. IMPRESSION: 1. There is no acute fracture or dislocation evident in the cervical spine. 2. No acute intracranial hemorrhage, mass effect, or midline shift is seen.
== END 2021-07-18 20:52 | disposition home or self-care (01) ==
LOC: EC 18:08
DX: S01.01XA Laceration without foreign body of scalp, initial encounter (principal); E11.9 Type 2 diabetes mellitus without complications; I25.2 Old myocardial infarction; I25.10 Atherosclerotic heart disease of native coronary artery without angina pectoris; Z79.84 Long term (current) use of oral hypoglycemic drugs; Z79.82 Long term (current) use of aspirin; Z79.890 Hormone replacement therapy; Z79.899 Other long term (current) drug therapy; W01.198A Fall on same level from slipping, tripping and stumbling with subsequent striking against other object, initial encounter
CPT/HCPCS: 70450; 72125; 90471; 90715; 99284

== ENCOUNTER → 2021-08-17 | Outpatient (CLI) | payer MEDICARE, OTHER ==
[2021-08-17 23:05] LABS: Basophils # (A) 0.03 X 10*3/uL (0.00-0.10); Basophils % (A) 0.6 %; Eosinophils # (A) 0.23 X 10*3/uL (0.04-0.35); Eosinophils % (A) 4.7 %; HCT 44.7 % (39.6-50.0); HGB 14.6 g/dL (13.0-17.0); Lymphocytes # (A) 1.03 X 10*3/uL (0.90-5.00); Lymphocytes % (A) 20.9 %; MCHC 32.7 g/dL (32.0-37.0); MCV 101.1 fL (80.0-97.0); Mean Platelet Volume 12.5 fL (9.5-12.2); Monocytes # (A) 0.69 X 10*3/uL (0.20-1.00); Neutrophils # (A) 2.92 X 10*3/uL (1.80-7.70); Neutrophils % (A) 59.4 %; Platelet Count 129 X 10*3/uL (140-440); RBC 4.42 X 10*6/uL (4.40-5.60); RDW 13.3 % (11.5-14.5); WBC 4.92 X 10*3/uL (4.50-10.00)
[2021-08-18 04:42] LABS: African American GFR (CKD) 66.7 (60.0-200.0); Albumin 4.4 g/dL (3.8-4.9); Albumin/Globulin Ratio 1.76 (1.60-3.17); Anion Gap 14.5 mmol/L (4.00-12.00); BUN/Creat Ratio 17.33 Ratio (12.00-20.00); Blood Urea Nitrogen 20.8 mg/dL (9.0-27.0); Calcium 9.5 mg/dL (8.7-10.3); Carbon Dioxide 20.5 mmol/L (21.6-31.8); Globulin 2.5 g/dL (1.6-3.3); Magnesium 2.2 mg/dL (1.5-2.4); Non-African American GFR(CKD) 57.6 (60.0-200.0); Potassium 4.7 mmol/L (3.5-5.5); Total Bilirubin 0.9 mg/dL (0.30-1.20); Total Protein 6.9 g/dL (6.2-8.2)
== END | disposition home or self-care (01) ==
LOC: LABWHC1 14:07
PROVIDERS: ATTEND Nurse Practitioner Acute Care
DX: H54.3 Unqualified visual loss, both eyes (principal); I25.10 Atherosclerotic heart disease of native coronary artery without angina pectoris; R42 Dizziness and giddiness
CPT/HCPCS: 36415; 80053; 83735; 85025

== ENCOUNTER → 2022-05-08 | Outpatient (CLI) | payer MEDICARE, OTHER ==
--- NOTE | 2022-05-08 12:06 | FL ---
EXAMINATION TYPE: FL barium swallow w video DATE OF EXAM: 05/08/2022 MODIFIED SWALLOW / DEGLUTITION STUDY CLINICAL HISTORY: Dysphagia. TECHNIQUE: Deglutition study is performed utilizing thin liquid barium, barium thick applesauce, and barium coated cracker. FINDINGS: There is no evidence of laryngeal penetration or aspiration at the time of the study. Total fluoroscopic time 44 seconds. No images on PACS. IMPRESSION: No laryngeal penetration or aspiration. Please refer to speech therapist notes for furthe r details.
== END | disposition home or self-care (01) ==
LOC: RADFLMAIN 10:53
PROVIDERS: ATTEND Psychiatry & Neurology Neurology
DX: R13.10 Dysphagia, unspecified (principal)
CPT/HCPCS: 74230

== ENCOUNTER → 2022-09-26 | Outpatient (CLI) | payer MEDICARE, OTHER ==
[2022-09-26 16:00] LABS: ALT 23 U/L (10-49); AST 34 U/L (14-35); African American GFR (CKD) 59.7 (60.0-200.0); Albumin 4.6 g/dL (3.8-4.9); Albumin/Globulin Ratio 1.53 (1.60-3.17); Alkaline Phosphatase 60 U/L (41-126); BUN/Creat Ratio 15.08 Ratio (12.00-20.00); Blood Urea Nitrogen 19.6 mg/dL (9.0-27.0); Calcium 9.6 mg/dL (8.7-10.3); Carbon Dioxide 22.1 mmol/L (20.0-27.5); Chloride 108 mmol/L (96-109); Chol/HDL Ratio 3.35 Ratio; Glucose 145 mg/dL (70-110); LDL Cholesterol,Calculated 89.8 mg/dL (0.0-131.0); Non-African American GFR(CKD) 51.5 (60.0-200.0); Potassium 4.6 mmol/L (3.5-5.5); Sodium 141 mmol/L (135-145); Total Protein 7.6 g/dL (6.2-8.2)
== END | disposition home or self-care (01) ==
LOC: LABWHC1 09:38
PROVIDERS: ATTEND Nurse Practitioner Family
DX: Z00.00 Encounter for general adult medical examination without abnormal findings (principal); E11.9 Type 2 diabetes mellitus without complications; I73.9 Peripheral vascular disease, unspecified
CPT/HCPCS: 36415; 80053; 80061; 83036; 84153; 84443

== ENCOUNTER → 2023-05-22 | Outpatient (CLI) | payer MEDICARE, OTHER ==
--- NOTE | 2023-05-23 08:50 | XR ---
EXAMINATION TYPE: XR KUB DATE OF EXAM: 05/22/2023 COMPARISON: 03/10/2021 HISTORY: Pain TECHNIQUE: One view abdominal series FINDINGS: The osseous structures are intact. The bowel gas pattern is nonspecific. Lung bases are clear. Right kidney: There is a 1.2 and 0.4 cm lower pole right renal calculus. Findings stable. Left kidney: There is a 1.4, 1.2, 0.7, and 1.2 cm mid to lower pole calculi. There is a punctate 2 mm upper pole calculus. Surgical clips in the right upper quadrant. Hypertrophic degenerative changes in the spine. Hypertrop hic arthropathy of the hips. Vascular calcifications in the pelvis. IMPRESSION: 1. Stable bilateral nephrolithiasis..
== END | disposition home or self-care (01) ==
LOC: RADXRMAIN 15:48
PROVIDERS: ATTEND Urology
DX: N20.0 Calculus of kidney (principal)
CPT/HCPCS: 74018

== ENCOUNTER → 2023-06-19 | Outpatient (CLI) | payer MEDICARE, OTHER ==
[2023-06-19 17:13] LABS: ALT 31 U/L (10-49); AST 33 U/L (14-35); Albumin 4.4 d/dL (3.8-4.9); Albumin/Globulin Ratio 1.91 Ratio (1.60-3.17); Alkaline Phosphatase 68 U/L (41-126); BUN/Creat Ratio 16.91 Ratio (12.00-20.00); Blood Urea Nitrogen 18.6 mg/dL (9.0-27.0); Calcium 9.7 mg/dL (8.7-10.3); Carbon Dioxide 24.7 mmol/L (21.6-31.8); Chloride 111 mmol/L (96-109); Globulin 2.3 d/dL (1.6-3.3); Glucose 137 mg/dL (70-110); Potassium 4.9 mmol/L (3.5-5.5); Sodium 145 mmol/L (135-145); Total Bilirubin 0.7 mg/dL (0.3-1.2); Total Protein 6.7 d/dL (6.2-8.2)
[2023-06-19 17:42] LABS: Basophils # (A) 0.08 X 10*3/uL (0.00-0.10); Basophils % (A) 1.3 %; Eosinophils # (A) 0.39 X 10*3/uL (0.04-0.35); Eosinophils % (A) 6.1 %; HCT 28.7 % (39.6-50.0); HGB 9.1 d/dL (13.0-17.0); Lymphocytes # (A) 2.59 X 10*3/uL (0.90-5.00); Lymphocytes % (A) 40.7 %; MCH 29.1 pg (27.0-32.0); MCHC 31.7 d/dL (32.0-37.0); MCV 91.7 FL (80.0-97.0); Mean Platelet Volume 10.6 FL (9.5-12.2); Monocytes # (A) 0.67 X 10*3/uL (0.20-1.00); Monocytes % (A) 10.5 %; NRBC Per 100 WBC 0 X 10*3/uL (0.00-0.01); Neutrophils # (A) 2.61 X 10*3/uL (1.80-7.70); Neutrophils % (A) 41.1 %; Platelet Count 295 X 10*3/uL (140-440); RBC 3.13 X 10*6/uL (4.40-5.60); RDW 17.2 % (11.5-14.5); WBC 6.36 X 10*3/uL (4.50-10.00)
[2023-06-19 20:32] LABS: Bacteria,Urine None Seen (None Seen)
[2023-06-19 20:42] LABS: Appearance,Urine Clear (Clear); Bilirubin,Urine Negative (Negative); Blood,Urine Large (Negative); Color,Urine Yellow (Yellow); Ketones,Urine Trace (Negative); Nitrite,Urine Negative (Negative); PH, Urine 5.5; Specific Gravity,Urine 1.031 (1.001-1.030); Urobilinogen,Urine 0.2
== END | disposition home or self-care (01) ==
LOC: LABPAT 10:11
PROVIDERS: ATTEND Urology
DX: Z01.812 Encounter for preprocedural laboratory examination (principal); N20.1 Calculus of ureter; R31.29 Other microscopic hematuria
CPT/HCPCS: 36415; 80053; 81001; 85025; 87086

== ENCOUNTER 2023-06-26 05:54 | Day surgery (SDC) | payer MEDICARE, OTHER ==
--- NOTE | 2023-06-25 11:23 | P.GSHP ---
History of Present Illness H&P Date: 06/25/23 82 yo male with a large volume of left renal stones[>3cm] that are symptomatic. He was given treatment options and comes for pcnl left The risks and complications have been explained understood and accepted. - Constitutional Constitutional: Denies chills, Denies fever - EENT Eyes: denies blurred vision, denies pain Ears, nose, mouth and throat: Denies headache, Denies sore throat - Cardiovascular Cardiovascular: Denies chest pain, Denies shortness of breath - Respiratory Respiratory: Denies cough, Denies 7 - Gastrointestinal Gastrointestinal: Denies abdominal pain, Denies diarrhea, Denies nausea, Denies vomiting - Genitourinary (Female) Genitourinary: Denies dysuria, Denies hematuria - Genitourinary (Male) Genitourinary: Denies dysuria, Denies hematuria - Musculoskeletal Musculoskeletal: Denies myalgias - Integumentary Integumentary: Denies pruritus, Denies rash - Neurological Neurological: Denies numbness, Denies weakness - Psychiatric Psychiatric: Denies anxiety, Denies depression - Endocrine Endocrine: Denies fatigue, Denies weight change Past Medical History Past Medical History: Coronary Artery Disease (CAD), Cancer, Diabetes Mellitus, Eye Disorder, Hearing Disorder / Deafness, Myocardial Infarction ([place]), Prostate Disorder Additional Past Medical History / Comment(s): bilat glaucoma, hx lyme disease, kidney stones still embedded. 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 hx of skin cancer, BP runs low. mild eczema Last Myocardial Infarction Date:: 2018 History of Any Multi-Drug Resistant Organisms: None Reported Past Surgical History: Cholecystectomy, Heart Catheterization With Stent Additional Past Surgical History / Comment(s): colonscopy 5 stents to heart,. REPAIR FX JAW. KIDNEY STONE -LITHOTRIPSY. URETERAL STENTS WITH LATER REMOVAL Past Anesthesia/Blood Transfusion Reactions: No Reported Reaction Date of Last Stent Placement:: 2018 Past Psychological History: No Psychological Hx Reported Smoking Status: Never smoker Past Alcohol Use History: None Reported Past Drug Use History: None Reported - Past Family History Brother(s) Family Medical History: Deep Vein Thrombosis (DVT) Mother Family Medical History: CVA/TIA Medications and Allergies Home Medications Medication Instructions Recorded Confirmed Type Alfuzosin HCl [Uroxatral ER] 10 mg PO HS 09/28/19 06/18/23 History Calcium Carb/Magnesium Ox,Carb 2 tab PO HS 09/28/19 06/18/23 History [James-Mag 500-250 MG Chewable] Melatonin 5 mg PO HS 09/28/19 06/18/23 History Somnapur 1 tab PO HS 09/28/19 06/18/23 History Thyroid,Pork [Voca Thyroid] 60 mg PO DAILY 09/28/19 06/18/23 History Aspirin 81 mg PO DAILY chew 10/02/19 06/18/23 Rx Tamsulosin [Flomax] 0.4 mg PO HS #30 cap.er.24h 10/02/19 03/15/23 Rx Nitroglycerin Sl Tabs [Nitrostat] 0.4 mg SUBLINGUAL Q5M PRN #20 tab 01/06/20 06/18/23 Rx glipiZIDE [Glucotrol] 5 mg PO DAILY 30 Days #30 tab 01/06/20 06/18/23 Rx Unk Aleve 1 tab PO DIRECTED PRN 03/12/23 06/18/23 History Unk Dorzolamide Eye Drops 1 drop BOTH EYES BID 03/12/23 06/18/23 History Unk Lactaid 1 tab PO DAILY 03/12/23 06/18/23 History Empagliflozin [Jardiance] 10 mg PO DAILY 06/18/23 06/18/23 History Allergies Allergy/AdvReac Type Severity Reaction Status Date / Time No Known Allergies Allergy Verified 06/18/23 15:16 Surgical - Exam - General well developed, well nourished, no distress - Eyes normal ocular movement, no icteric - ENT no hearing loss, no congestion - Neck no masses, trachea midline - Respiratory normal respiratory effort, clear to auscultation - Abdomen Abdomen: soft, non tender, no guarding, no rigid, no rebound - Integumentary no rash, no abnormal pigmentation - Neurologic no disoriented, no combative - Psychiatric oriented to time, oriented to person, oriented to place, speech is normal, memory intact Results - Imaging Abdominal x-ray: report reviewed, image reviewed CT scan - abdomen: report reviewed, image reviewed CT scan - pelvis: report reviewed, image reviewed Assessment and Plan Assessment: Impression; left renal stones, large, > 3cm. cad, dm Plan: left pcnl
[2023-06-26] MEDS ORDERED: LIDOCAINE 1% (10MG/ML) FOR IV START INTRADERMA PRN (06:42)
[2023-06-26] MEDS ORDERED: ONDANSETRON 4 MG/2 ML VIAL IVP ONE (06:42)
[2023-06-26] MEDS: LACTATED RINGERS 1,000 ML IV SCH (06:55)
[2023-06-26] MEDS ORDERED: HYDROmorphone 0.5 MG/0.5 ML SYRINGE IVP PRN (07:00)
--- NOTE | 2023-06-26 07:01 | XR ---
EXAM: XR Abdomen, 1 View CLINICAL HISTORY: ITS.REASON XR Reason: N20.1 TECHNIQUE: Frontal supine view of the abdomen/pelvis. COMPARISON: Single view of the abdomen May 22, 2023 IMPRESSION: 1. Limited evaluation given lack of appropriate clinical history. 2. Evaluation for free are limited by supine imaging. 3. Dilated loops of small bowel measuring up to 3.6 cm which may relate to bowel obstruction. Consider cross-sectional imaging if there is further concern. 4. Cholecystectomy clips. 5. Findings suspicious for nonobstructive renal calculi with unchanged inverting from prior study dated May 22, 2023
[2023-06-26 07:28] LABS: Glucose,Whole Blood 87 mg/dL (70-110)
[2023-06-26 07:58] LABS: Basophils % (A) 1 %; Eosinophils # (A) 0.2 k/uL (0-0.7); Eosinophils % (A) 4 %; HCT 46.2 % (39.0-53.0); HGB 15.3 gm/dL (13.0-17.5); Lymphocytes # (A) 1.4 k/uL (1.0-4.8); Lymphocytes % (A) 26 %; MCH 33.4 pg (25.0-35.0); MCHC 33.1 g/dL (31.0-37.0); MCV 100.8 fL (80.0-100.0); Macrocytosis Slight; Mean Platelet Volume 8.8; Monocytes # (A) 0.4 k/uL (0-1.0); Monocytes % (A) 8 %; Neutrophils # (A) 3.2 k/uL (1.3-7.7); Neutrophils % (A) 60 %; Platelet Count 132 k/uL (150-450); RBC 4.58 m/uL (4.30-5.90); RDW 13.6 % (11.5-15.5); WBC 5.3 k/uL (3.8-10.6)
[2023-06-26] MEDS ORDERED: MIDAZOLAM 2 MG/2 ML VIAL ONE (08:23)
[2023-06-26] MEDS ORDERED: ePHEDrine 50 MG/ML 1 ML VIAL ONE (08:23)
[2023-06-26] MEDS ORDERED: ROCURONIUM 10 MG/ML (5 ML VIAL) IV ONE (08:23)
[2023-06-26] MEDS ORDERED: PROPOFOL 10 MG/ML 20 ML VIAL IV ONE (08:23)
[2023-06-26] MEDS ORDERED: NEOSTIGMINE 1 MG/ML 10 ML VIAL ONE (08:23)
[2023-06-26] MEDS ORDERED: fentaNYL (PF) 50 MCG/ML 2 ML AMP ONE (08:23)
[2023-06-26] MEDS ORDERED: SUCCINYLCHOLINE CHLORIDE 200 MG/10 ML VIAL IV ONE (08:23)
[2023-06-26] MEDS ORDERED: LIDOCAINE 2% INJ 20 MG/ML (2 ML VIAL) ONE (08:23)
[2023-06-26] MEDS ORDERED: GLYCOPYRROLATE 0.2 MG/ML 2 ML VIAL ONE (08:23)
[2023-06-26] MEDS ORDERED: IOPAMIDOL-370 100ML BTL MISCELLANE ONE (09:00)
[2023-06-26] MEDS ORDERED: LACTATED RINGERS 1,000 ML IV ONE (09:47)
[2023-06-26] MEDS ORDERED: NITROGLYCERIN SL TABS 0.4 MG TAB SUBLINGUAL PRN (10:09)
[2023-06-26] MEDS ORDERED: MAG HYDROX/AL HYDROX/SIMETH 30 ML CUP PO PRN (10:10)
[2023-06-26] MEDS ORDERED: ACETAMINOPHEN TAB 325 MG TAB PO PRN (10:10)
[2023-06-26] MEDS ORDERED: ONDANSETRON 4 MG/2 ML VIAL IVP PRN (10:10)
[2023-06-26] MEDS ORDERED: NALOXONE 0.4 MG/ML 1 ML VIAL IV PRN (10:12)
[2023-06-26] MEDS ORDERED: HYDROmorphone PCA 10 MG/50 ML BAG IV PRN (10:12)
--- NOTE | 2023-06-26 10:18 | P.OP ---
Date of Procedure: 06/26/23 Preoperative Diagnosis: Left renal calculi (large greater than 3 cm) Postoperative Diagnosis: Same Procedure(s) Performed: Cystoscopy, placement of occluding balloon catheter left ureter, percutaneous nephrostomy ((Dr. sullivan), percutaneous nephrostolithotomy ultrasound, placement of 10 J nephrostomy tube left Anesthesia: SLAVA Surgeon: Brayden Griggs Estimated Blood Loss (ml): 200 Pathology: other (Stone) Condition: stable Disposition: PACU Indications for Procedure: The patient is 82. He has a large on the left renal stones greater than 3 cm. The largest is in the renal pelvis there is a lower pole and middle pole stone as well as small fragments. Due to the sheer volume of stones he comes for percutaneous nephrostolithotomy left Description of Procedure: Patient brought to the operating suite. He is given a general anesthetic. He's placed in lithotomy position. Cystoscopy with Foroblique lens and 21-Canadian sheath identifies an obstructing prostate. The bladder de la o trabeculated. The left ureteral orifice is identified and intubated with a 5-Canadian occluding balloon catheter. The cystoscope was removed and it is secured to a 16-Canadian Harrington catheter introduced in the bladder The patient is placed in a prone position on the operating table with care to his airway and extremities. Dr. Sullivan of radiology performed percutaneous access to the left lower pole calyx. I dilate the tract to 30-Canadian and introduced the working sheath. I introduced the rigid scope into the collecting system and there are 2 large stones in the renal pelvis that are broken up with ultrasound. The largest fragments or grasp and removed. I then identify smaller fragments in the lower pole collecting system that are grasped and removed. I passed the flexible nephroscope throughout the collecting system and remove small stones. There is one stone in an anterior lower pole calyx that I can see but cannot access with the flexible scope, flexible ureteroscope or basket. I thus elected terminate the procedure is this stone is probably at best 5 mm it. A 10 J nephrostomy tube was placed in the left renal pelvis confirmed fluoroscopically. It is secured to the skin with 2-0 silk. The patient is awakened and returned recovery room good condition. Blood loss is between 150 and 200 mL. The patient tolerated the procedure well and was placed in the hospital postoperatively.
[2023-06-26 10:25] LABS: Glucose,Whole Blood 131 mg/dL (70-110)
[2023-06-26] MEDS: SODIUM CHLORIDE 0.45% 1,000 ML IV SCH ×3 (12:17→14:13)
[2023-06-26] MEDS: KETOROLAC 15 MG/ML 1 ML VIAL IVP PRN ×2 (12:25→22:17)
[2023-06-26] MEDS ORDERED: DEXTROSE 50% SYRINGE 50 ML IVP PRN ×2 (19:19)
[2023-06-26 20:26] LABS: Glucose,Whole Blood 141 mg/dL (70-110)
[2023-06-26] MEDS: DORZOLAMIDE HCL 2% DROPS 10 ML BTL BOTH EYES SCH (20:32)
[2023-06-26] MEDS: INSULIN ASPART (NovoLOG) 100 UNIT/ML VIAL SQ SCH (20:32)
[2023-06-26] MEDS ORDERED: TAMSULOSIN 0.4 MG CAP.ER.24H PO SCH (21:00)
[2023-06-27 06:05] LABS: Glucose,Whole Blood 164 mg/dL (70-110)
[2023-06-27] MEDS: KETOROLAC 15 MG/ML 1 ML VIAL IVP PRN ×2 (06:13→21:33)
[2023-06-27] MEDS: LACTATED RINGERS 1,000 ML IV SCH (06:14)
[2023-06-27] MEDS: INSULIN ASPART (NovoLOG) 100 UNIT/ML VIAL SQ SCH ×4 (06:17→21:07)
--- NOTE | 2023-06-27 07:41 | P.PN ---
Progress Note - Text Progress Note Date: 06/27/23 The patient is first postoperative day from a left percutaneous nephrostolithotomy. The urine is clearing. His pain is under control. He is eating some. I will discontinue his Harrington in. The patient will ambulate. If his pain is under control he ambulates and he feels well he'll be discharged home later today for nephrostomy tube and follow-up in the office next week. If he cannot answer those issues he may stay in the hospital again another 24 hours.
[2023-06-27] MEDS: THYROID, PORK 30 MG TAB PO SCH (08:00)
[2023-06-27] MEDS: DORZOLAMIDE HCL 2% DROPS 10 ML BTL BOTH EYES SCH ×2 (08:01→21:34)
[2023-06-27] MEDS: glipiZIDE 5 MG TAB PO SCH (08:01)
[2023-06-27] MEDS: DAPAGLIFLOZIN PROPANEDIOL 5 MG TABLET PO SCH (08:01)
[2023-06-27 11:25] LABS: Glucose,Whole Blood 93 mg/dL (70-110)
[2023-06-27] MEDS: TAMSULOSIN 0.4 MG CAP.ER.24H PO SCH ×2 (14:21→21:33)
[2023-06-27] MEDS: SODIUM CHLORIDE 0.45% 1,000 ML IV SCH (14:22)
[2023-06-27 16:26] LABS: Glucose,Whole Blood 96 mg/dL (70-110)
[2023-06-27 20:46] LABS: Glucose,Whole Blood 115 mg/dL (70-110)
[2023-06-27] MEDS ORDERED: TAMSULOSIN 0.4 MG CAP.ER.24H PO SCH (21:00)
[2023-06-28] MEDS: SODIUM CHLORIDE 0.45% 1,000 ML IV SCH (02:18)
[2023-06-28] MEDS: LACTATED RINGERS 1,000 ML IV SCH (05:40)
[2023-06-28] MEDS: INSULIN ASPART (NovoLOG) 100 UNIT/ML VIAL SQ SCH ×2 (05:57→11:07)
[2023-06-28 06:00] LABS: Glucose,Whole Blood 134 mg/dL (70-110)
[2023-06-28 07:40] VITALS: BP 104/62; PULSE 79; RESP 18; TEMP 98.9
--- NOTE | 2023-06-28 08:09 | P.DS ---
Providers Attending physician: Brayden Griggs Primary care physician: [facility] Hospital Course: Patient admitted to the hospital for a left percutaneous nephrostolithotomy. He underwent this without difficulty. There is one tiny stone remaining in the left kidney. His vital signs are stable. He is tolerated a diet. His urine is clearing. The patient attempted to urinate yesterday but failed. He does have BPH. The catheter will be removed today. If he voids he'll go home without the Harrington if he does not void he'll go home with the Harrington. He'll go home with the nephrostomy tube he'll be seen in the office next Saturday for nephrostomy tube removal. The Harrington catheter if still present will be removed 68 hours prior to the office visit for a voiding trial. He'll resume his home medication. His diet is regular his activities Limited. His condition is good. Patient Condition at Discharge: Good Plan - Discharge Summary Discharge Rx Participant: Yes New Discharge Prescriptions: New Ketorolac [Toradol] 10 mg PO Q6HR #14 tab No Action Calcium Carb/Magnesium Ox,Carb [James-Mag 500-250 MG Chewable] 2 tab PO HS Thyroid,Pork [Cheraw Thyroid] 60 mg PO DAILY Alfuzosin HCl [Uroxatral ER] 10 mg PO HS Somnapur 1 tab PO HS Melatonin 5 mg PO HS Aspirin 81 mg PO DAILY chew Tamsulosin [Flomax] 0.4 mg PO HS #30 cap.er.24h Nitroglycerin Sl Tabs [Nitrostat] 0.4 mg SUBLINGUAL Q5M PRN #20 tab PRN Reason: Chest Pain glipiZIDE [Glucotrol] 5 mg PO DAILY 30 Days #30 tab Unk Dorzolamide Eye Drops 1 drop BOTH EYES BID Empagliflozin [Jardiance] 10 mg PO DAILY Unk Lactaid 1 tab PO DAILY Unk Aleve 1 tab PO DIRECTED PRN PRN Reason: Pain Discharge Medication List Alfuzosin HCl [Uroxatral ER] 10 mg PO HS 09/28/19 [History] Calcium Carb/Magnesium Ox,Carb [James-Mag 500-250 MG Chewable] 2 tab PO HS 09/28/19 [History] Melatonin 5 mg PO HS 09/28/19 [History] Somnapur 1 tab PO HS 09/28/19 [History] Thyroid,Pork [Cheraw Thyroid] 60 mg PO DAILY 09/28/19 [History] Aspirin 81 mg PO DAILY chew 10/02/19 [Rx] Tamsulosin [Flomax] 0.4 mg PO HS #30 cap.er.24h 10/02/19 [Rx] Nitroglycerin Sl Tabs [Nitrostat] 0.4 mg SUBLINGUAL Q5M PRN #20 tab 01/06/20 [Rx] glipiZIDE [Glucotrol] 5 mg PO DAILY 30 Days #30 tab 01/06/20 [Rx] Unk Aleve 1 tab PO DIRECTED PRN 03/12/23 [History] Unk Dorzolamide Eye Drops 1 drop BOTH EYES BID 03/12/23 [History] Unk Lactaid 1 tab PO DAILY 03/12/23 [History] Empagliflozin [Jardiance] 10 mg PO DAILY 06/18/23 [History] Ketorolac [Toradol] 10 mg PO Q6HR #14 tab 06/27/23 [Rx] Follow up Appointment(s)/Referral(s): Brayden Griggs MD [STAFF PHYSICIAN] - 07/02/23 (home with neohrostomy tube. Home with Harrington if catheter has to be reinserted. The patient should remove the Harrington catheter 68 hours prior to his office visit next Saturday. The patient has pain medicine at home. The patient may shower.) Discharge Disposition: HOME SELF-CARE
[2023-06-28] MEDS: THYROID, PORK 30 MG TAB PO SCH (08:36)
[2023-06-28] MEDS: DAPAGLIFLOZIN PROPANEDIOL 5 MG TABLET PO SCH (08:36)
[2023-06-28] MEDS: glipiZIDE 5 MG TAB PO SCH (08:36)
[2023-06-28] MEDS: TAMSULOSIN 0.4 MG CAP.ER.24H PO SCH (08:36)
[2023-06-28] MEDS: DORZOLAMIDE HCL 2% DROPS 10 ML BTL BOTH EYES SCH (08:37)
[2023-06-28 11:06] LABS: Glucose,Whole Blood 138 mg/dL (70-110)
--- NOTE | 2023-06-28 16:05 | FL ---
EXAMINATION TYPE: FL Perc Nephrostomy New Access DATE OF EXAM: 06/26/2023 COMPARISON: NONE HISTORY: Left kidney stone Procedure had been discussed with the patient by Dr. Griggs, risks, benefits, alternatives, were dis cussed and any questions were answered. Informed consent was obtained. The patient was in a semipro ne position prepped and draped on the OR table in the usual sterile fashion. Utilizing a 15 cm lengt h Chiba needle a single pass was made into a lower pole posterior calyx under fluoroscopic guidance. An 0.018 guidewire is passed through the needle and there was placement of a 6-[place] catheter sheat h system. There was conversion to a 0.035 system was performed with passage of a guidewire into the ureter utilizing a directional catheter. A second safety wire was placed. Remaining portion of pro cedure performed by . Approximately 26.36 DAP and 2.34 minutes of fluoroscopy was provided. IMPRESSION: 1. Successful intraoperative left nephrostomy prior to nephrolithotomy.
== END 2023-06-28 13:19 | disposition home or self-care (01) ==
LOC: OR 05:54 → 4SSUR 09:57 → OR 06-28 13:19
PROVIDERS: ATTEND Urology
DX: N20.0 Calculus of kidney (principal); I25.10 Atherosclerotic heart disease of native coronary artery without angina pectoris; E11.9 Type 2 diabetes mellitus without complications; I25.2 Old myocardial infarction; Z85.828 Personal history of other malignant neoplasm of skin; Z90.49 Acquired absence of other specified parts of digestive tract; Z95.5 Presence of coronary angioplasty implant and graft; Z79.899 Other long term (current) drug therapy; Z79.890 Hormone replacement therapy; Z79.82 Long term (current) use of aspirin
CPT/HCPCS: 94760; 94762; 93005; 86900; 86901; 85025; 86850; 82365; 83036; 50432; 74018; 50080; C1769 ×6; C2628; C1729 ×2; C1894; J2250; J0330; J2710; J0690; J2405; J3010; J1885 ×2; J2704; J1170 ×2; Q9967; J2001

== ENCOUNTER → 2025-04-26 | Outpatient (CLI) | payer MEDICARE, OTHER ==
--- NOTE | 2025-04-26 09:55 | XR ---
EXAMINATION TYPE: XR chest 2V DATE OF EXAM: 04/26/2025 9:47 AM COMPARISON: 05/22/2021 CLINICAL INDICATION: Male, 84 years old with history of R07.89 CHEST PAIN, TECHNIQUE: XR chest 2V view(s) obtained. FINDINGS: The heart size is normal. The pulmonary vasculature is normal. The lungs are clear. IMPRESSION: 1. No acute pulmonary process. [facility], , 04/26/2025 9:52 AM
== END | disposition home or self-care (01) ==
LOC: RADXRMAIN 09:37
PROVIDERS: ATTEND Family Medicine
DX: R07.89 Other chest pain (principal)
CPT/HCPCS: 71046